=== PATIENT | female | born 1955 | race Two or more races ===

== ENCOUNTER 2024-06-21 14:41 | Emergency (ER) | payer MEDICARE, SELFPAY ==
[2024-06-21] VITALS (11 sets, daily range): BP systolic 120–160; BP diastolic 46–68; PULSE 74–95; RESP 16–99; TEMP 36.7–38.6; O2SAT 95–100; BMI 32.0
--- NOTE | 2024-06-21 14:58 | XR_ITS ---
Examination: CT brain head without contrast. 2-D sagittal coronal reconstructions Date and time of exam:June 21, 2024 1512 hrs. Comparison: January 04, 2024 Indications: Onset severe head pain today CTDI: vol (mGy):51.3 DLP: (mGycm):951 Technique: Multiple CT axial sections of the brain have been obtained, 5 mm slice thickness. Contrast has not been administered. 2-D sagittal, coronal reconstructions have been obtained Low dose protocols were performed. One or more of the following dose reduction techniques were used; automated exposure control, adjustment of the mA and/or KV according to patient size, use of iterative reconstruction technique. Findings: No significant ventricular enlargement. Intra-axial or extra-axial hemorrhage density is not seen. No mass effect or midline shift Basal cisterns are not remarkable. Fourth ventricle is midline. Cranial vault intact. Impression: Negative for acute hemorrhage, mass effect or midline shift Advise clinical correlation and follow-up accordingly
--- NOTE | 2024-06-21 14:58 | XR_ITS ---
Examination: PA lateral chest 2 views Technique: Upright PA lateral chest 2 views Exam date and time: June 21, 2024 1523 hrs. Indications: Coughing today Findings: Normal heart size Opacity left base consistent with pneumonia Right internal jugular Port-A-Cath tip satisfactory position Moderate osteopenia Impression: Left base pneumonia
--- NOTE | 2024-06-21 14:58 | PD.EDRME ---
Rapid Medical Screening Exam RME Arrival date/time: 06/21/24 14:41 69-year-old female cancer patient presents emergency department complaints of headache, generalized bodyaches nausea vomiting Chief Complaint: General Adult/Misc Complain
[2024-06-21 15:51] LABS: Collection Type, Urine Clean Catch
[2024-06-21 16:15] LABS: Lactate (Lactic Acid) 1.1 mMol/L (0.4-2.0)
[2024-06-21 16:19] LABS: Amorphous Crystals,Urine Present (Absent); Bilirubin,Urine Negative (Negative); Blood,Urine Negative (Negative); Clarity,Urine Clear (Clear/Hazy); Color,Urine Lt-Yellow (Lt Yel-Yel); Glucose, Urine Negative (Negative); Ketones,Urine Negative (Negative); Leukocyte Esterase,Urine Negative (Negative); Nitrite,Urine Negative (Negative); Protein,Urine Trace (Neg - Trace); RBC,Urine 1 /hpf (0-3); Specific Gravity,Urine 1.017 (1.001-1.035); Squamous Epithelial Cell,Urine 1 /hpf (0-5); Urobilinogen,Urine Negative mg/dL (0.0-1.0); WBC,Urine 3 /hpf (0-5)
[2024-06-21 16:20] LABS: Basophils % (Auto) 0 % (0-2.5); Eosinophils % (Auto) 1 % (0-10); Immature Granulocytes % (Auto) 0 % (0-0); Lymphocytes # (Auto) 0.6 Thou/mm3 (1.0-4.8); Lymphocytes % (Auto) 42 % (10-50); Mean Corpuscular HGB Conc 34.8 g/dl (31.0-37.0); Mean Corpuscular Hemoglobin 29.6 pg (25.0-35.0); Mean Corpuscular Volume 85 fL (80-100); Monocytes # (Auto) 0.4 Thou/mm3 (0.0-0.8); Monocytes % (Auto) 29 % (0-12); Neutrophils # (Auto) 0.4 Thou/mm3 (1.8-7.7); Neutrophils % (Auto) 27 % (37-80); Nucleated Red Blood Cell % 0 /100 WBC (0); Platelet Count 149 Thou/mm3 (140-440); RDW Standard Deviation 43.2 fL (36.4-46.3)
[2024-06-21 16:45] LABS: Alanine Aminotransferase 12 U/L (10-49); Albumin, Serum 4.3 gm/dL (3.4-4.8); Albumin/Globulin Ratio 1.3 (1.2-2.2); Alkaline Phosphatase 74 U/L (46-116); Anion Gap 8 (7-16); Aspartate Amino Transferase 17 U/L (0-34); BUN/Creatinine Ratio 30 Ratio (12-20); Bilirubin,Total 0.6 mg/dL (0.3-1.2); Blood Urea Nitrogen 30 mg/dL (9-23); Calcium 9.5 mg/dL (8.3-10.6); Calcium (Corrected) 9.5 mg/dL (8.5-10.1); Carbon Dioxide 26.3 mMol/L (20.0-31.0); Chloride 100 mMol/L (98-107); Estimated Creatinine Clearance 50.4 mL/min (>60); Globulin 3.2 gm/dL (2.3-3.5); Glucose 137 mg/dL (74-106); Osmolality,Calculated 276 (275-295); Procalcitonin 0.16 ng/ml (0.0-0.49); Sodium 134 mMol/L (136-145); Total Protein 7.5 gm/dL (5.7-8.2); eGFR > 60 See Note
[2024-06-21 16:46] LABS: Potassium 2.6 mMol/L (3.4-5.1)
--- NOTE | 2024-06-21 16:48 | EKG_ITS ---
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
[2024-06-21 17:14] LABS: Magnesium 1.4 mg/dL (1.6-2.6); Troponin I < 0.020 ng/mL (0.0-0.045)
[2024-06-21 17:19] LABS: White Blood Count 1.5 Thou/mm3 (3.6-11.0)
[2024-06-21 17:35] LABS: Path Review Blood Smear Sent to Pathologist
--- NOTE | 2024-06-21 20:04 | EDNOTE_ITS ---
ED General RME/HPI General Chief complaint: General Adult/Misc Complain Stated complaint: chills, N,V, cancer pt Time Seen by Provider: 06/21/24 18:34 Arrival date/time: 06/21/24 14:41 CC: Cough, shakes HPI cough for 4 days shakes in the last 12 hours. Patient has a history of cervical and breast cancer is currently on chemotherapy every 2 weeks for cervical cancer in the [place]. Patient denies chest pain shortness of breath but is mostly complaining of the headache and the shakes. RME / HPI RME / HPI narrative: 06/21/24 14:41 69-year-old female cancer patient presents emergency department complaints of headache, generalized bodyaches nausea vomiting Related Data Home Medications ?Medication ?Instructions ?Recorded ?Confirmed amlodipine 5 mg tablet 10 mg PO QDAY 07/17/21 03/23/24 hydrochlorothiazide 25 mg tablet 25 mg PO QDAY 07/17/21 03/23/24 Previous Rx's ?Medication ?Instructions ?Recorded oxycodone-acetaminophen 5 mg-325 1 tab PO Q8H PRN pain #21 tabs 03/26/24 mg tablet levofloxacin 750 mg tablet 750 mg PO Q24H 7 days #7 tabs 06/21/24 potassium chloride 20 mEq/15 mL 20 meq (15 mL) PO QDAY #5 mL 06/21/24 oral liquid Allergies Allergy/AdvReac Type Severity Reaction Status Date / Time No Known Allergies Allergy Verified 04/23/24 14:51 Review of Systems Review of Systems Narrative Review of Systems: GEN: No fever, + chills, no weight loss EYES: No discharge, no visual changes, no pain HEENT: No ear pain, no congestion, no sore throat PULM: No shortness of breath, no cough, no congestion CV: No chest pain, no dyspnea on exertion, no palpitations GI: No nausea, no vomiting, no diarrhea, no pain, no constipation : No frequency, no urgency, no dysuria MUSC/SKEL: No joint pain, no back pain SKIN: No rash PSYCH: No hallucinations, no depression HEME/LYMPH: No easy bleeding or bruising tendencies NEURO: No weakness, + headache Past Medical History Past Medical History NEUROLOGIC: Negative Neurological Disorders or Seizures CARDIAC: Positive Hypercholesterolemia, Edema and Hypertension; Negative Cardiac Disorders, Congestive Heart Failure, Cellulitis or Varicose Veins RESPIRATORY: Negative Chronic Obstructive Pulmonary Disease (COPD), Asthma, Tuberculosis, Pulmonary Embolism or Sleep Apnea GASTROINTESTINAL: Positive Gastrointestinal Disorders, Gastroesophageal Reflux Disease and Obesity; Negative Hepatitis GENITOURINARY: Positive Renal Disease; Negative Genitourinary Disorders REPRODUCTIVE: Positive Breast Cancer (left) and Previous Pregnancies (x5) MUSCULOSKELETAL: Positive Musculoskeletal Disorders and Arthritis ENT: Positive Cataracts ENDOCRINE: Negative Endocrine Disorders, Diabetes Mellitus Type 1, Diabetes Mellitus Type 2 or Hypothyroidism HEMATOLOGIC: Negative Blood Disorders, Anemia or Sickle Cell Disease OTHER HISTORY: Positive Cancer and Breast Cancer (left); Negative Hospitalization, Autoimmune Disease, Shingles, Falls, Blood Transfusions, Anesthesia Reactions, Chemotherapy, Radiation Therapy, MRSA, Chicken Pox, Measles or Mumps Family History FAMILY HISTORY: Positive Family Respiratory Disorders, Family Cardiac Disorders, Family Gastrointestinal Problems, Family Cancer and Family Surgery; Negative Family Psychiatric Problems or Family Anesthesia Reaction Surgical History SURGICAL: Positive Abdominal Surgery (pancreatic tumor removed), Tubal Ligation and Section (x4); Negative Pacemaker Social History SMOKING STATUS: Never smoker SECOND HAND EXPOSURE: No ED Exam Narrative Physical exam: [General: Pale obese appears not in any acute distress Head normocephalic HEENT: Within acceptable limits Neck is supple nontender Chest equal chest rise nontender to palpation Respiratory: Clear to auscultation no wheezes crackles or rubs CV: Rate rhythm is regular no murmurs rubs or clicks Abdomen is distended secondary to body habitus soft nontender no masses positive bowel sounds all 4 quadrants GI: Good rectal tone old hemorrhoids, no fissures, stool in the vault guaiac is negative. Back: No CVA tenderness no spinous process tenderness from cervical spine thoracic and lumbar spine Skin: Intact no petechiae rash induration ulceration or crepitus Extremities: Moving all extremity against resistance cap refill less than 2 seconds neurosensory intact. No lower extremity edema. Neuro: Awake alert oriented x2, person and place, Glascow coma 15 no focal deficits] Course Course Course Narrative: Spoke with the son on the phone, who reiterates the patient is on cisplatin for both cervical and breast cancer every 2 weeks at [facility] next dose is in 1 week. Patient gets chemo every 2 weeks. Patient has maintain oxygen saturations greater than 93-94% without tachypnea or tachycardia throughout her visit to the emergency room. At this time comfortable discharging patient home on Levaquin. Family need to follow-up with oncology regarding consideration for postponement. Family is advised that if there is a worsening of symptoms return the emergency room for reevaluation. Quality Measures none Orders Category Date Time Status Bedside COVID-19 Antigen Test NOW Care 06/21/24 14:58 Completed Bedside Influenza A&B Antigen Test NOW Care 06/21/24 14:58 Completed Director Underwriter Sales STAT Care 06/21/24 20:03 Completed Continuous Pulse Oximetry STAT Care 06/21/24 20:03 Completed EKG (ED ONLY) *Do not use* NOW Care 06/21/24 16:48 Completed Insert IV NOW Care 06/21/24 20:03 Completed NPO STAT Care 06/21/24 20:03 Completed Saline [Insert IV] NOW Care 06/21/24 19:52 Completed Strict Intake and Output Routine Care 06/21/24 20:[address] head/brain wo con Stat Exams 06/21/24 14:58 Completed EKG (ED Only) Stat Exams 06/21/24 16:48 Draft XR chest 2V Stat Exams 06/21/24 14:58 Completed B-Type Natriuretic Peptide Stat Lab 06/21/24 16:08 Completed Blood Culture (Lab) Stat Lab 06/21/24 16:03 Results CBC Stat Lab 06/21/24 16:08 Completed Comprehensive Metabolic Panel Stat Lab 06/21/24 16:08 Completed LDH (Lactate Dehydrogenase) Stat Lab 06/21/24 16:08 Completed Lactate (Lactic Acid) Stat Lab 06/21/24 16:08 Completed Lipase Stat Lab 06/21/24 16:08 Completed Mag [Magnesium] Stat Lab 06/21/24 16:08 Completed Partial Thromboplastin Time Stat Lab 06/21/24 16:08 Completed Path Review Blood Smear Stat Lab 06/21/24 16:08 Completed Phosphorous Stat Lab 06/21/24 16:08 Completed Potassium Stat Lab 06/21/24 22:19 Completed Procalcitonin Stat Lab 06/21/24 16:08 Completed Prothrombin Time with INR Stat Lab 06/21/24 16:08 Completed Troponin I Stat Lab 06/21/24 16:08 Completed Type and Screen Stat Lab 06/21/24 19:30 Completed Urinalysis Stat Lab 06/21/24 15:32 Completed Urine Culture Stat Lab 06/21/24 15:32 Completed Acetaminophen Tab [Tylenol Tab] Med 06/21/24 20:12 Discontinued 650 mg PO X1 ONE KCL 10% Liq UDC 15 ML Med 06/21/24 20:11 Discontinued 40 meq GT X1 ONE KCL 10% Liq UDC 15 ML Med 06/21/24 20:11 Discontinued 40 meq GT X1 ONE POTASSIUM CHL 10 mEq IVPB [Kcl Ivpb] Med 06/21/24 19:53 Discontinued 10 meq in 100 ml IV Q1H POTASSIUM CHL 20 mEq IVPB [Kcl Ivpb] Med 06/21/24 18:36 Discontinued 20 meq in 100 ml IV Q2H cefTRIAXone/D5w 1gm IV premix [Rocephin/D5w 1gm IV Med 06/22/24 21:00 Discontinued premix] 50 ml IV QDAY@2100 cefTRIAXone/D5w 1gm IV premix [Rocephin/D5w 1gm IV Med 06/21/24 20:00 Discontinued premix] 50 ml IV X1 Oxygen Delivery NOW RT 06/21/24 20:03 Completed Vital Signs Vital signs: Vital Signs Temperature 100.9 F H 06/21/24 14:52 Pulse Rate 95 06/21/24 14:52 Respiratory Rate 19 06/21/24 14:52 Blood Pressure 134/68 H 06/21/24 14:52 Pulse Oximetry (%) 95 06/21/24 14:52 Oxygen Delivery Method Room Air 06/21/24 14:52 [facility] Patient data External records reviewed:: [facility] previous records Clinical information provided by:: patient Social determinants that could affect healthcare access:: none Patient has the following chronic illnesses:: Cervical breast cancer on chemotherapy How is presenting disease/condition affected by chronic disease/condition?: u neffected by Evaluation data The following diagnostics were reviewed and interpreted by me:: lab results and radiology exam(s) Lab and/or radiology exams considered but not ordered:: EKG performed at 180 shows a ventricular rate of 70 VA interval 157 QRS of 116 QTc 385 this is sinus rhythm when compared to the old EKG of December 2021 there are no significant changes. CBC shows a leukopenia with a WBCs of 1.5 H&H of 8.0 and 23.0 when compared to old blood draws this is a 5 g drop over the last blood draw. Platelets at 149 CMP shows a sodium 134 potassium 2.4 chloride of 100 CO2 of 26.3 BUN of 30 creatinine 1.0 with a glucose of 137 Urine is negative for urinary tract infection Interpretation Summary: This patient has intermediate anemia, probably secondary to chemotherapy guaiac is negative. X-ray shows a pneumonia in the left base this is consistent with the patient's clinical presentation of cough, potassium is also noted to be low. Medications Medications considered but not ordered:: None Medication administrations:: Medication Administration History Discontinued Medications Acetaminophen (Acetaminophen 325 Mg Tablet) 650 mg PO X1 ONE Stop: 06/21/24 20:13 Last Admin: 06/21/24 20:22 Dose: 650 mg Documented By: PA Potassium Chloride (Kcl Ivpb) 20 meq in 100 mls @ 50 mls/hr IV Q2H [facility] Stop: 06/21/24 22:35 Last Admin: 06/21/24 20:07 Dose: Not Given Documented By: PA Non-Admin Reason: Discontinued Ceftriaxone Sodium/Dextrose (Rocephin/D5w 1gm Iv Premix) 50 mls @ 100 mls/hr IV QDAY@2100 [facility] Stop: 06/28/24 19:52 Potassium Chloride (Kcl Ivpb) 10 meq in 100 mls @ 100 mls/hr IV Q1H [facility] Stop: 06/21/24 23:52 Last Admin: 06/21/24 20:19 Dose: Not Given Documented By: PA Non-Admin Reason: Discontinued Ceftriaxone Sodium/Dextrose (Rocephin/D5w 1gm Iv Premix) 50 mls @ 100 mls/hr IV X1 ONE Stop: 06/21/24 20:29 Last Infusion: 06/21/24 21:41 Dose: Infused Documented By: Admin: 06/21/24 20:08 Dose: 100 mls/hr Documented By: PA Potassium Chloride (Potassium Chloride 10% 20 Meq/15 Ml Udc) 40 meq GT X1 ONE Stop: 06/21/24 20:12 Last Admin: 06/21/24 20:22 Dose: 40 meq Documented By: PA Potassium Chloride (Potassium Chloride 10% 20 Meq/15 Ml Udc) 40 meq GT X1 ONE Stop: 06/21/24 20:12 Last Admin: 06/21/24 21:02 Dose: 40 meq Documented By: PA None Consultations Consultation(s) initiated? (list below): No Diagnosis Differential Diagnosis ED Complaint MDM: Hypokalemia anemia Most likely diagnosis given after review of the tests above:: Hypokalemia anemia Admission Indicated Admission indicated?: not indicated Explain why admission is indicated or not indicated:: Stable for outpatient follow-up Admission Request Was there a request for admission?: No Disposition Plan Disposition Plan: Discharge Discharge Attestation Discharge Attestation: The patient and all family members were given an opportunity to ask questions and understood the discharge instructions. Discharge instructions specifically effects, indications for sooner follow up or return to the emergency department, and the expected course of current diagnosis. Patient condition: Stable Medical Decision Making Differential Diagnosis Differential Diagnosis: Hypokalemia anemia Lab Data 06/21/24 16:08 06/21/24 22:19 Labs: Lab Results 06/21/24 06/21/24 06/21/24 Range/Units 15:32 16:08 19:30 WBC 1.5 L (3.6-11.0) Thou/mm3 RBC 2.70 L (4.00-5.20) Miln/mm3 Hgb 8.0 L (12.0-16.0) g/dL Hct 23.0 L (36.0-46.0) % MCV 85 (80-100) fL MCH 29.6 (25.0-35.0) pg MCHC 34.8 (31.0-37.0) g/dl RDW Std Deviation 43.2 (36.4-46.3) fL Plt Count 149 (140-440) Thou/mm3 Neut % (Auto) 27 L (37-80) % Lymph % (Auto) 42 (10-50) % [place] % (Auto) 29 H (0-12) % Eos % (Auto) 1 (0-10) % Baso % (Auto) 0 (0-2.5) % Neut # (Auto) 0.4 L (1.8-7.7) Thou/mm3 Lymph # (Auto) 0.6 L (1.0-4.8) Thou/mm3 [place] # (Auto) 0.4 (0.0-0.8) Thou/mm3 Eos # (Auto) 0.0 (0.0-0.5) Thou/mm3 Baso # (Auto) 0.0 (0.0-0.2) Thou/mm3 Immature Gran # (Auto) 0.00 (0.00-0.00) Thou/mm3 Absolute Nucleated RBC 0.00 (0.00-0.00) Thou/mm3 Immature Gran % 0 (0-0) % Nucleated RBC % 0 (0) /100 WBC Smear Path Review Sent to Pathologist PT 14.0 H (9.0-12.2) Seconds INR 1.3 (0.9-1.3) APTT 34.8 (22.0-36.0) Seconds Sodium 134 L (136-145) mMol/L Potassium 2.6 L* (3.4-5.1) mMol/L Chloride 100 (98-107) mMol/L Carbon Dioxide 26.3 (20.0-31.0) mMol/L Anion Gap 8 (7-16) BUN 30 H (9-23) mg/dL Creatinine 1.0 (0.6-1.3) mg/dL Estim Creat Clear Calc 50.4 L (>60) mL/min eGFR > 60 (60 - ) See Note BUN/Creatinine Ratio 30 H (12-20) Ratio Glucose 137 H (74-106) mg/dL Calculated Osmolality 276 (275-295) Lactic Acid 1.1 (0.4-2.0) mMol/L Calcium 9.5 (8.3-10.6) mg/dL Corrected Calcium 9.5 (8.5-10.1) mg/dL Phosphorus 2.0 L (2.4-5.1) mg/dL Magnesium 1.4 L (1.6-2.6) mg/dL Total Bilirubin 0.6 (0.3-1.2) mg/dL AST 17 (0-34) U/L ALT 12 (10-49) U/L Alkaline Phosphatase 74 (46-116) U/L Lactate Dehydrogenase 170 (120-246) U/L Troponin I < 0.020 (0.0-0.045) ng/mL B-Natriuretic Peptide 24 (0-100) pg/mL Total Protein 7.5 (5.7-8.2) gm/dL Albumin 4.3 (3.4-4.8) gm/dL Globulin 3.2 (2.3-3.5) gm/dL Albumin/Globulin Ratio 1.3 (1.2-2.2) Lipase 36 (12-53) U/L Procalcitonin 0.16 (0.0-0.49) ng/ml Ur Collection Type Clean Catch Urine Color Lt-Yellow (Lt Yel-Yel) Urine Clarity Clear (Clear/Hazy) Urine pH 6.0 (5.0-7.0) Ur Specific [place] 1.017 (1.001-1.035) Urine Protein Trace (Neg - Trace) Urine Glucose (UA) Negative (Negative) Urine Ketones Negative (Negative) Urine Blood Negative (Negative) Urine Nitrite Negative (Negative) Urine Bilirubin Negative (Negative) Urine Urobilinogen (Auto) Negative (0.0-1.0) mg/dL Ur Leukocyte Esterase Negative (Negative) Urine RBC 1 (0-3) /hpf Urine WBC 3 (0-5) /hpf Ur Squamous Epith Cells 1 (0-5) /hpf Amorphous Crystals Present A (Absent) Urine Bacteria None (None) Blood Type O Positive Antibody Screen NEGATIVE Blood Bank Wristband ID Yes 06/21/24 Range/Units 22:19 WBC (3.6-11.0) Thou/mm3 RBC (4.00-5.20) Miln/mm3 Hgb (12.0-16.0) g/dL Hct (36.0-46.0) % MCV (80-100) fL MCH (25.0-35.0) pg MCHC (31.0-37.0) g/dl RDW Std Deviation (36.4-46.3) fL Plt Count (140-440) Thou/mm3 Neut % (Auto) (37-80) % Lymph % (Auto) (10-50) % [place] % (Auto) (0-12) % Eos % (Auto) (0-10) % Baso % (Auto) (0-2.5) % Neut # (Auto) (1.8-7.7) Thou/mm3 Lymph # (Auto) (1.0-4.8) Thou/mm3 [place] # (Auto) (0.0-0.8) Thou/mm3 Eos # (Auto) (0.0-0.5) Thou/mm3 Baso # (Auto) (0.0-0.2) Thou/mm3 Immature Gran # (Auto) (0.00-0.00) Thou/mm3 Absolute Nucleated RBC (0.00-0.00) Thou/mm3 Immature Gran % (0-0) % Nucleated RBC % (0) /100 WBC Smear Path Review PT (9.0-12.2) Seconds INR (0.9-1.3) APTT (22.0-36.0) Seconds Sodium (136-145) mMol/L Potassium 4.3 D (3.4-5.1) mMol/L Chloride (98-107) mMol/L Carbon Dioxide (20.0-31.0) mMol/L Anion Gap (7-16) BUN (9-23) mg/dL Creatinine (0.6-1.3) mg/dL Estim Creat Clear Calc (>60) mL/min eGFR (60 - ) See Note BUN/Creatinine Ratio (12-20) Ratio Glucose (74-106) mg/dL Calculated Osmolality (275-295) Lactic Acid (0.4-2.0) mMol/L Calcium (8.3-10.6) mg/dL Corrected Calcium (8.5-10.1) mg/dL Phosphorus (2.4-5.1) mg/dL Magnesium (1.6-2.6) mg/dL Total Bilirubin (0.3-1.2) mg/dL AST (0-34) U/L ALT (10-49) U/L Alkaline Phosphatase (46-116) U/L Lactate Dehydrogenase (120-246) U/L Troponin I (0.0-0.045) ng/mL B-Natriuretic Peptide (0-100) pg/mL Total Protein (5.7-8.2) gm/dL Albumin (3.4-4.8) gm/dL Globulin (2.3-3.5) gm/dL Albumin/Globulin Ratio (1.2-2.2) Lipase (12-53) U/L Procalcitonin (0.0-0.49) ng/ml Ur Collection Type Urine Color (Lt Yel-Yel) Urine Clarity (Clear/Hazy) Urine pH (5.0-7.0) Ur Specific [place] (1.001-1.035) Urine Protein (Neg - Trace) Urine Glucose (UA) (Negative) Urine Ketones (Negative) Urine Blood (Negative) Urine Nitrite (Negative) Urine Bilirubin (Negative) Urine Urobilinogen (Auto) (0.0-1.0) mg/dL Ur Leukocyte Esterase (Negative) Urine RBC (0-3) /hpf Urine WBC (0-5) /hpf Ur Squamous Epith Cells (0-5) /hpf Amorphous Crystals (Absent) Urine Bacteria (None) Blood Type Antibody Screen Blood Bank Wristband ID Discharge Plan Plan Patient Disposition: HOME (Self Care) Patient condition on transfer: Stable Prescriptions/Referrals Prescriptions/Med Rec: New levofloxacin 750 mg tablet 750 mg PO Q24H 7 Days Qty: 7 0RF potassium chloride 20 mEq/15 mL liquid 20 meq PO QDAY Qty: 5 0RF No Action amlodipine 5 mg tablet 10 mg PO QDAY hydrochlorothiazide 25 mg tablet 25 mg PO QDAY oxycodone-acetaminophen 5-325 mg tablet 1 tab PO Q8H MDD 15MG PRN (Reason: pain) Qty: 21 0RF Referrals: John Dempsey MD [Primary Care Provider] - In 1 week Problem List Clinical Impression: Pneumonia, Hypokalemia Patient/Caregiver Discharge Instructions Other Activity Instructions:: Take the medications as prescribed if is a worsening of symptoms return the emergency room Education Materials: ED Hypokalemia, ED Pneumonia (Adult) Print Language: Mauritian Stand Alone Forms: Gavi Award Info., Work/School Release, Patient Portal Info Letter MD Attestation Attestation The patient was seen by the midlevel practitioner. I, the co-signing physician, was present during the entire ER visit. While I did not physically examine the patient, I was available for consultation as needed.
[2024-06-21] MEDS: cefTRIAXone/D5w 1gm IV premix 50 ML IV (20:08)
[2024-06-21] MEDS: ACETAMINOPHEN 325 MG TABLET 650 MG PO (20:22)
[2024-06-21] MEDS: POTASSIUM CHLORIDE 10% 20 MEQ/15 ML UDC 40 MEQ GT ×2 (20:22→21:02)
[2024-06-21 20:55] LABS: B-Type Natriuretic Peptide 24 pg/mL (0-100)
[2024-06-21 21:04] LABS: INR 1.3 (0.9-1.3); Partial Thromboplastin Time 34.8 Seconds (22.0-36.0)
[2024-06-21 21:09] LABS: LDH (Lactate Dehydrogenase) 170 U/L (120-246); Lipase 36 U/L (12-53)
[2024-06-21 22:56] LABS: Potassium 4.3 mMol/L (3.4-5.1)
== END 2024-06-21 23:30 | disposition home or self-care (01) ==
PROVIDERS: Nurse Practitioner Primary Care; Registered Nurse General Practice; Emergency Provider Emergency Medicine; PCP Internal Medicine
DX: J18.9 Pneumonia, unspecified organism (principal); E87.6 Hypokalemia; R51.9 Headache, unspecified; I45.89 Other specified conduction disorders; E78.00 Pure hypercholesterolemia, unspecified; I10 Essential (primary) hypertension
CPT/HCPCS: 36415; 70450; 71046; 80053; 81001; 83605; 83615; 83690; 83735; 83880; 84100; 84132; 84145; 84484; 85025; 85610; 85730; 86850; 86900; 86901; 87040; 87086; 87400; 87811; 93005; 96365; 96366; 99284; J0696; A9270

== ENCOUNTER → 2024-08-02 | Outpatient (CLI) | payer MEDICARE, SELFPAY ==
--- NOTE | 2024-08-02 11:24 | XR_ITS ---
Examination: PA lateral chest 2 views TECHNIQUE: Upright PA lateral chest 2 views Exam date and time: August 02, 2024 1148 hours INDICATIONS: Dyspnea beginning 2 days ago. FINDINGS: Right internal jugular Port-A-Cath tip SVC satisfactory position Normal heart size No pneumonia or pulmonary edema Moderate thoracic spondylosis IMPRESSION: No pneumonia or pulmonary edema
== END | disposition home or self-care (01) ==
PROVIDERS: PCP Internal Medicine; Referring Provider Internal Medicine; Visit Provider Internal Medicine
DX: R06.00 Dyspnea, unspecified (principal)
CPT/HCPCS: 71046

== ENCOUNTER 2024-09-20 13:57 | Emergency (ER) | payer MEDICARE, SELFPAY ==
[2024-09-20] VITALS (9 sets, daily range): BP systolic 163–194; BP diastolic 88–99; PULSE 85–100; RESP 14–33; TEMP 36.8–37.3; O2SAT 95–98; BMI 29.2
--- NOTE | 2024-09-20 14:29 | XR_ITS ---
Examination: CT chest, without intravenous contrast. CT abdomen, without intravenous contrast. CT pelvis, without intravenous contrast. 2-D sagittal and coronal reconstructions. 3-D reconstructions. Date and time of exam:September 20, 2024 1507 hours INDICATIONS: Constipation no bowel movement lower abdominal pain post hysterectomy 4 days ago CTDI vol (mgy) 8.06 DLP (MGycm)542 Technique: Multiple CT images, 3.0 mm slice thickness, obtained chest, abdomen, pelvis, with the high-resolution 64 slice scanner.. Sagittal and coronal 2-D reconstructions are obtained. 3-D reconstructions Low dose protocols were performed. One or more of the following dose reduction techniques were used; automated exposure control, adjustment of the mA and/or KV according to patient size, use of iterative reconstruction technique. Findings: Thoracic aortic calcification no aneurysmal dilatation Pulmonary artery segments are not enlarged Fluid distended esophagus Atelectasis in the lower lung zones No lobar pneumonia Pneumoperitoneum Distended gallbladder with gallstones No focal liver lesions Spleen is not enlarged No pancreatic mass No hydronephrosis Multiple fluid distended small bowel loops with incarcerated small bowel in a left lower abdominal wall hernia defect measuring 20 mm Mild free fluid in the pelvis Absent uterus Contracted urinary bladder IMPRESSION: High-grade small bowel obstruction secondary to incarcerated small bowel in the left lower abdominal wall hernia defect
--- NOTE | 2024-09-20 14:30 | EDRME_ITS ---
Rapid Medical Screening Exam RME Arrival date/time: 09/20/24 13:57 69-year-old female presents to the emergency department today patient recently had laparoscopic hysterectomy as well as left breast removal for cancer at [facility] Chief Complaint: Abdominal Pain Vital signs: Vital Signs Temperature 99.1 F 09/20/24 14:23 Pulse Rate 100 09/20/24 14:23 Respiratory Rate 20 09/20/24 14:23 Blood Pressure 172/95 H 09/20/24 14:23 Pulse Oximetry (%) 97 09/20/24 14:23 Oxygen Delivery Method Room Air 09/20/24 14:23
[2024-09-20 15:14] LABS: Basophils % (Auto) 0 % (0-2.5); Eosinophils % (Auto) 0 % (0-10); Hematocrit 29.3 % (36.0-46.0); Immature Granulocytes % (Auto) 0 % (0-0); Lymphocytes # (Auto) 0.8 Thou/mm3 (1.0-4.8); Lymphocytes % (Auto) 25 % (10-50); Mean Corpuscular HGB Conc 34.1 g/dl (31.0-37.0); Mean Corpuscular Hemoglobin 33.1 pg (25.0-35.0); Mean Corpuscular Volume 97 fL (80-100); Monocytes # (Auto) 0.5 Thou/mm3 (0.0-0.8); Monocytes % (Auto) 16 % (0-12); Neutrophils # (Auto) 1.9 Thou/mm3 (1.8-7.7); Neutrophils % (Auto) 58 % (37-80); Nucleated Red Blood Cell % 0 /100 WBC (0); Platelet Count 211 Thou/mm3 (140-440); RDW Standard Deviation 56.4 fL (36.4-46.3); Red Blood Count 3.02 Miln/mm3 (4.00-5.20); White Blood Count 3.3 Thou/mm3 (3.6-11.0)
[2024-09-20 15:26] LABS: Collection Type, Urine Clean Catch
[2024-09-20 15:48] LABS: Alanine Aminotransferase 9 U/L (10-49); Albumin, Serum 4.7 gm/dL (3.4-4.8); Albumin/Globulin Ratio 1.5 (1.2-2.2); Alkaline Phosphatase 89 U/L (46-116); Anion Gap 12 (7-16); Aspartate Amino Transferase 16 U/L (0-34); BUN/Creatinine Ratio 26 Ratio (12-20); Bilirubin,Total 0.8 mg/dL (0.3-1.2); Blood Urea Nitrogen 36 mg/dL (9-23); Calcium 10.2 mg/dL (8.3-10.6); Calcium (Corrected) 10.2 mg/dL (8.5-10.1); Carbon Dioxide 26.8 mMol/L (20.0-31.0); Chloride 98 mMol/L (98-107); Creatinine (Component) 1.4 mg/dL (0.6-1.3); Estimated Creatinine Clearance 34.4 mL/min (>60); Globulin 3.1 gm/dL (2.3-3.5); Glucose 184 mg/dL (74-106); Lipase 52 U/L (12-53); Osmolality,Calculated 287 (275-295); Potassium 4.3 mMol/L (3.4-5.1); Sodium 137 mMol/L (136-145); Total Protein 7.8 gm/dL (5.7-8.2); eGFR 40 See Note
[2024-09-20 16:16] LABS: Bilirubin,Urine 1+ (Negative); Blood,Urine Negative (Negative); Clarity,Urine Turbid (Clear/Hazy); Color,Urine Yellow (Lt Yel-Yel); Culture Indicated,Urine Not Indicated; Glucose, Urine Negative (Negative); Hyaline Casts,Urine 4 /hpf (0-1); Ketones,Urine 1+ (Negative); Leukocyte Esterase,Urine Positive (Negative); Nitrite,Urine Negative (Negative); Protein,Urine 1+ (Neg - Trace); RBC,Urine 13 /hpf (0-3); Specific Gravity,Urine 1.031 (1.001-1.035); Squamous Epithelial Cell,Urine 4 /hpf (0-5); WBC,Urine 4 /hpf (0-5)
--- NOTE | 2024-09-20 18:44 | EKG_ITS ---
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
[2024-09-20] MEDS: ONDANSETRON INJ 2 MG/ML INJ 2 ML 4 MG IV (19:39)
[2024-09-20] MEDS: SODIUM CHLORIDE 0.9% 1000 ML 1,000 ML 999 ML IV (19:40)
[2024-09-20] MEDS: HYDROmorphone INJ 2 MG/ML VIAL 1 MG IVP (19:40)
--- NOTE | 2024-09-20 20:26 | EDNOTE_ITS ---
ED Abdominal Pain RME/HPI General Chief Complaint: Abdominal Pain Stated complaint: ABD PAIN/NO BM S/P SURGERY 09/18 FOR LAP LAURA Time seen by provider: 09/20/24 18:30 Arrival date/time: 09/20/24 13:57 Source: patient and family Mode of arrival: ambulatory Limitations: no limitations RME / HPI RME / HPI narrative: 09/20/24 13:57 69-year-old female presents to the emergency department today patient recently had laparoscopic hysterectomy as well as left breast removal for cancer at [facility] Dr. Camp?s Main ED Evaluation: 69-year-old female brought to the emergency department by ambulance due to significantly worsening abdominal pain at the surgical incision site. The patient reports she recently had laparoscopic hysterectomy at [facility] as part of her treatment for cervical cancer this past Friday. Since discharge, she has experienced worsening pain, prompting today's ED visit for concerns for post surgical complications. Related Data Home Medications ?Medication ?Instructions ?Recorded ?Confirmed amlodipine 5 mg tablet 10 mg PO QDAY 07/17/2103/23 hydrochlorothiazide 25 mg tablet 25 mg PO QDAY 1 03/23/24 Previous Rx's ?Medication ?Instructions ?Recorded oxycodone-acetaminophen 5 mg-325 1 tab PO Q8H PRN pain #21 tabs 03/26/24 mg tablet potassium chloride 20 mEq/15 mL 20 meq (15 mL) PO QDAY #5 mL 06/21/24 oral liquid Allergies Allergy/AdvReac Type Severity Reaction Status Date / Time No Known Allergies Allergy Verified 09/20/24 14:01 Review of Systems Review of Systems Systems Reviewed: All systems reviewed, normal except as documented Past Medical History Past Medical History NEUROLOGIC: Negative Neurological Disorders or Seizures CARDIAC: Positive Hypercholesterolemia, Edema and Hypertension; Negative Cardiac Disorders, Congestive Heart Failure, Cellulitis or Varicose Veins RESPIRATORY: Negative Chronic Obstructive Pulmonary Disease (COPD), Asthma, Tuberculosis, Pulmonary Embolism or Sleep Apnea GASTROINTESTINAL: Positive Gastrointestinal Disorders, Gastroesophageal Reflux Disease and Obesity; Negative Hepatitis GENITOURINARY: Positive Renal Disease; Negative Genitourinary Disorders REPRODUCTIVE: Positive Breast Cancer (left) and Previous Pregnancies (x5) MUSCULOSKELETAL: Positive Musculoskeletal Disorders and Arthritis ENT: Positive Cataracts ENDOCRINE: Negative Endocrine Disorders, Diabetes Mellitus Type 1, Diabetes Mellitus Type 2 or Hypothyroidism HEMATOLOGIC: Negative Blood Disorders, Anemia or Sickle Cell Disease OTHER HISTORY: Positive Cancer and Breast Cancer (left); Negative Hospitalization, Autoimmune Disease, Shingles, Falls, Blood Transfusions, Anesthesia Reactions, Chemotherapy, Radiation Therapy, MRSA, Chicken Pox, Measles or Mumps Family History FAMILY HISTORY: Positive Family Respiratory Disorders, Family Cardiac Disorders, Family Gastrointestinal Problems, Family Cancer and Family Surgery; Negative Family Psychiatric Problems or Family Anesthesia Reaction Surgical History SURGICAL: Positive Abdominal Surgery (pancreatic tumor removed), Tubal Ligation and Section (x4); Negative Pacemaker Social History SMOKING STATUS: Never smoker SECOND HAND EXPOSURE: No ED Exam Narrative Physical exam: GENERAL APPEARANCE: alert and oriented x 4, well-developed, well-nourished, no acute distress VITALS: All vitals were reviewed and the pulse ox is 97% on room air, which is normal according to my interpretation. HEENT: Normocephalic, atraumatic; pupils equal, round, reactive to light; EOMI; mucous membranes pink, moist; oropharynx clear NECK: Supple LUNGS: CTABL; no wheezes, no rales, no rhonchi HEART: Regular rate, regular rhythm; normal S1, S2; no murmurs ABDOMEN: There is a hard, exquisitely tender, palpable mass approximately 12 cm in diameter located in the suprapubic and left lower quadrants of the anterior abdomen, with a large overlying fat pad. Multiple fresh, well-healing wounds are present in the suprapubic region without surrounding erythema, drainage, or active bleeding. BACK: no CVA tenderness EXTREMITIES: atraumatic; no edema NEUROLOGIC: awake; alert and oriented x4; cranial nerves II-XII grossly intact; no focal sensory or motor deficits PSYCHIATRIC: appropriate mood and affect SKIN: warm, dry, normal color; no rashes General Limitations: Present no limitations Course Quality Measures none Orders Category Date Time Status EKG (ED ONLY) *Do not use* NOW Care 09/20/24 18:[address] chest abdomen pelvis wo Stat Exams 09/20/24 14:29 Completed EKG (ED Only) Stat Exams 09/20/24 18:44 Draft CBC Stat Lab 09/20/24 14:57 Completed Comprehensive Metabolic Panel Stat Lab 09/20/24 14:57 Completed Lipase Stat Lab 09/20/24 14:57 Completed UA, C/S IF [Urinalysis, C/S if Indicated] Stat Lab 09/20/24 15:19 Completed HYDROmorphone INJ [Dilaudid Inj] Med 09/20/24 18:41 Discontinued 1 mg IVP X1 ONE HYDROmorphone INJ [Dilaudid Inj] Med 09/21/24 00:15 Discontinued 1 mg IVP X1 ONE Ondansetron Inj [Zofran Inj] Med 09/20/24 18:41 Discontinued 4 mg IV X1 ONE Sodium Chloride 0.9% 1000 ml [Ns] 1,000 ml Med 09/20/24 18:41 Discontinued IV 999 mls/hr Vital Signs Vital signs: Vital Signs Temperature 99.1 F 09/20/24 14:23 Pulse Rate 100 09/20/24 14:23 Respiratory Rate 20 09/20/24 14:23 Blood Pressure 172/95 H 09/20/24 14:23 Pulse Oximetry (%) 97 09/20/24 14:23 Oxygen Delivery Method Room Air 09/20/24 14:23 Abdominal Pain MDM MDM Narrative MDM Narrative:: 20:11, the case was discussed with Dr. Monique, Gynecologic Oncology from [facility]. Dr. Monique stated that he will consult with his team to expedite coordination for the patient's direct admission. Level of care needed: [facility] 0100: Charge nurse, Celio, alerted me that the patient has a bed avalaible for her at [facility] and is now pending transfer. The differential diagnoses include small bowel obstruction (SBO), post-surgical abscess, post-surgical hemorrhage, and surgical wound dehiscence. Scribe Attestation: Sam Shoemaker am scribing for and in the presence of Dr. Camp. Provider Notation: Although this document has been carefully reviewed, there may still be some phonetic and other typographical errors. These errors are purely grammatical due to imperfections in the software program and should not be construed in any way to compromise the substance of the patient's medical care during this visit. Patient data External records reviewed:: [facility] previous records Clinical information provided by:: patient and family Social determinants that could affect healthcare access:: none Patient has the following chronic illnesses:: see PMH How is presenting disease/condition affected by chronic disease/condition?: caused by Evaluation data The following diagnostics were reviewed and interpreted by me:: lab results, radiology exam(s) and EKG tracing(s) Lab and/or radiology exams considered but not ordered:: n/a Interpretation Summary: I personally reviewed the radiology data and agree with the radiologist's interpretation. Examination: CT chest, without intravenous contrast. CT abdomen, without intravenous contrast. CT pelvis, without intravenous contrast. Date and time of exam:September 20, 2024 1507 hours INDICATIONS: Constipation no bowel movement lower abdominal pain post hysterectomy 4 days ago Findings: Thoracic aortic calcification no aneurysmal dilatation Pulmonary artery segments are not enlarged Fluid distended esophagus Atelectasis in the lower lung zones No lobar pneumonia Pneumoperitoneum Distended gallbladder with gallstones No focal liver lesions Spleen is not enlarged No pancreatic mass No hydronephrosis Multiple fluid distended small bowel loops with incarcerated small bowel in a left lower abdominal wall hernia defect measuring 20 mm Mild free fluid in the pelvis Absent uterus Contracted urinary bladder IMPRESSION: High-grade small bowel obstruction secondary to incarcerated small bowel in the left lower abdominal wall hernia defect Medications / Prescriptions Medications or Prescriptions considered but not ordered:: n/a Medication administrations:: Medication Administration History Discontinued Medications Hydromorphone HCl (Hydromorphone Inj 2 Mg/Ml Vial) 1 mg IVP X1 ONE Stop: 09/20/24 18:42 Last Admin: 09/20/24 19:40 Dose: 1 mg Documented By: HALLEY Hydromorphone HCl (Hydromorphone Inj 2 Mg/Ml Vial) 1 mg IVP X1 ONE Stop: 09/21/24 00:16 Last Admin: 09/21/24 00:20 Dose: 1 mg Documented By: HALLEY Sodium Chloride (Ns) 1,000 mls @ 999 mls/hr IV .Q1H1M ONE Stop: 09/20/24 19:41 Last Infusion: 09/20/24 21:05 Dose: Infused Documented By: Admin: 09/20/24 19:40 Dose: 999 mls/hr Documented By: HALLEY Ondansetron HCl (Ondansetron Inj 2 Mg/Ml Inj 2 Ml) 4 mg IV X1 ONE; Protocol Stop: 09/20/24 18:42 Last Admin: 09/20/24 19:39 Dose: 4 mg Documented By: HALLEY as above Consultations Consultation(s) initiated? (list below): Yes Consultation #1 (Physician, Specialty, Details): see narrative Diagnosis Differential diagnosis abdominal pain: other (see narrative) Most likely diagnosis given after review of the tests above:: see clinical impression below Admission Indicated Admission indicated?: not indicated Explain why admission is indicated or not indicated:: Higher level of care indicated Admission Request Was there a request for admission?: No Disposition Plan Disposition Plan: Transfer Critical Care Time Critical Care Time Critical Care Time: Yes Total Critical Care Time (min.): 60 Attestation: The high probability of sudden, clinically significant deterioration in the patient?s condition required the highest level of my preparedness to intervene urgently. ? The services I provided to this patient were to treat and/or prevent clinically significant deterioration. Services included the following: chart data review, reviewing nursing notes and/or old charts, documentation time, supervisor home energy consultant collaboration regarding findings and treatment options, medication orders and management, direct patient care, vital sign assessments and ordering, interpreting and reviewing diagnostic studies and lab tests. ? Aggregate critical care time includes only time during which I was engaged in work directly related to the patient?s care, as described above, whether at bedside or elsewhere in the Emergency Department. It did not include time spent performing other reported procedures or the services of residents, students, nurses or physician assistants. Discharge Plan Plan Patient Disposition: [facility] Pt Being Transferred to: Other-Specify in comment Service Needed for Transfer: Gynecology Disposition Comment: Accepted by Dr. Monique, Gynecologic Oncology Patient condition on transfer: Stable Prescriptions/Referrals Prescriptions/Med Rec: No Action amlodipine 5 mg tablet 10 mg PO QDAY hydrochlorothiazide 25 mg tablet 25 mg PO QDAY oxycodone-acetaminophen 5-325 mg tablet 1 tab PO Q8H MDD 15MG PRN (Reason: pain) Qty: 21 0RF potassium chloride 20 mEq/15 mL liquid 20 meq PO QDAY Qty: 5 0RF Referrals: John Dempsey MD [Primary Care Provider] - In 1 week Problem List Clinical Impression: Incarcerated ventral hernia, SBO (small bowel obstruction) Patient/Caregiver Discharge Instructions Print Language: Montenegrin Stand Alone Forms: Gavi Award Info., Patient Portal Info Letter
[2024-09-21] VITALS: BP 154/74; PULSE 92; RESP 35; O2SAT 96
[2024-09-21] MEDS: HYDROmorphone INJ 2 MG/ML VIAL 1 MG IVP (00:20)
[2024-09-21 01:00] VITALS: BP 170/93; PULSE 89; RESP 21; O2SAT 94
--- NOTE | 2024-09-21 01:03 | PC.NURSE ---
THIS PT IS ACCEPTED TO [facility] BY DR. FRANSISCA MAI. THIS PT IS GOING TO RM 2309 AND NUMBER FOR REPORT IS [phone]. BUILDING ADDRESS IS [address] [place] [address]. ZAIN WAS THE FACILITY REP I SPOKE WITH FOR ACCEPTING INFORMATION AND ZAIN REQUEST THAT WE GIVE HER A CALL BACK WITH A ETA AT [phone].
[2024-09-21 01:21] VITALS: BP 170/93; PULSE 87; RESP 17; TEMP 36.4; O2SAT 95
--- NOTE | 2024-09-21 01:41 | PC.NURSE ---
THIS PT IS ACCEPTED FOR TRANSPORT BY [facility] WITH A ETA OF [phone]. TEO WAS THE REP I SPOKE WITH FOR THE ACCEPTING INFORMATION.
[2024-09-21 02:00] VITALS: BP 142/95; PULSE 88; RESP 18; O2SAT 96
[2024-09-21 03:01] VITALS: BP 172/90; PULSE 92; RESP 25; O2SAT 96
[2024-09-21 03:25] VITALS: BP 172/90; PULSE 91; RESP 17; O2SAT 95
--- NOTE | 2024-09-21 03:31 | PC.NURSE ---
REPORT GIVEN TO ALEX COTA AT [facility]. ALL QUESTIONS ASKED AND ANSWERED. PATIENT TRANSFERRED TO [facility] WITH STAFF. PATIENT REMAINS ON ROOM AIR. IV REMAINS TO RIGHT HAND. NO DISTRESS NOTED AT TRANSFER. FAMILY AT BEDSIDE AND AWARE OF WHERE PATIENT IS GOING.
== END 2024-09-21 03:50 | disposition short-term general hospital (02) ==
PROVIDERS: Nurse Practitioner Primary Care; Emergency Provider Emergency Medicine; PCP Internal Medicine
DX: K43.6 Other and unspecified ventral hernia with obstruction, without gangrene (principal); C53.9 Malignant neoplasm of cervix uteri, unspecified; E78.00 Pure hypercholesterolemia, unspecified; I10 Essential (primary) hypertension; Z85.3 Personal history of malignant neoplasm of breast; Z90.710 Acquired absence of both cervix and uterus
CPT/HCPCS: 36415; 71250; 74176; 80053; 81001; 83690; 85025; 93005; 96361; 96374; 96375; 96376; 99284; J2405; J3490; J7030

== ENCOUNTER 2024-11-02 13:01 | Outpatient (RCR) | payer MEDICARE, SELFPAY ==
--- NOTE | 2024-11-02 16:04 | CTCTXPLN_ITS ---
[facility] [address] [place], [place] [address] Physician Clinical Treatment Planning Note Date of Service: 11/02/2024 Name: ALYSSA MOLINA : 1955 The patient has agreed to proceed with Radiation therapy. Tests and supporting medical records were interpreted to assist in defining the tumor location and extent of disease. Further imaging will be necessary to contour and delineate the volume to which the XRT will be provided. A. Treatment Intent: Curative B. Modality: 15 MV C. Requested Technique: 3D D. Treatment Site: Left breast E. Critical structures to be contoured on plan: F. In order to accomplish this plan, I am ordering/Prescribing the followin. Simulations (s) will be performed to accomplish a reproducible treatment position, to determine optimal treatment portals/beam arrangements, to design beam modifying devices and verify treatment portals on patient prior to the commencement of Radiation Therapy. Vac-Kuldip 2. Devices; for immobilization and beam shaping: Left breast 3. CT Guidance for placement of XRT aviles Scan area: 4. Portal images Frequency: 5. Invivo transit dose measurement once per week on all VMAT patients. 6. Special Physics Consult Requested for: 7. Other requests: Special procedures someone getting chemo and radiation G. Dose Objectives: Curative Electronically signed by: Rick Daniel M.D. 11/02/2024 4:02 PM
--- NOTE | 2024-11-02 16:10 | CTCTXPLNST_ITS ---
Radiation Oncology Treatment Planning Sheet Name: ALYSSA MOLINA MR#: [id number] : 1955 Dx: C50.919 Malignant neoplasm of unspecified site of unspecified female breast Date of Service: 11/02/2024 Account #: ?? Pt Treatment Intent: curative palliative other: Stage: Procedure CPT # Ordered Spec. Procedure 09452 1 Garcia Complex (set-up) 22392 L breast/ 2 garcia 1 Garcia Simple 31531 1 IMRT Plan 81756 MLC Devices VMAT 45606 Garcia 3 D 52726 1 TRTMT dev Complex 73997 Vaklok/2F 3 TRTMT dev simple 66709 1 Basic Armando 40504 4 Special Dosimetry 27476 Spec Physics 43311 Port Films 70007 3 SRS Cranial/1FX 30118 SBR 5 FX or Less /ex: 5 = 5 fx 16904 IMRT Simple 51156 IMRT Complex 98625 IGRT 72091 Rad del com 6-10 44754 Rad del com 11- 68904 3990 15 Cont Med Physics 49129 3 Treatment Planning 81744 1 Rad del com 20 mev 33900 Rad del inter 01-18 64628 Rad del inter 06-29 15464 Rad del simple 610 13672 Rad del simple 06-29 76709 Special Port Plan 38980 TRTMT dev inter 09362 Isodose Complex 55937 Isodose simple 42065 Resp Motion Mgmt Simulation 47771 Placement of Fiducial Markers 49939 Electronically Signed By: Rick Daniel MD, WILMANR 11/02/2024 4:07 PM
--- NOTE | 2024-11-02 16:21 | CTCCONSULT_ITS ---
[facility] [address] [place], [place] [address] Consultation Note Date: 11/02/2024 MR#: [id number] Name: ALYSSA MOLINA : 1955 Dx: C50.919 Malignant neoplasm of unspecified site of unspecified female breast C55 uterine cancer Referring physician. Tricia Mims MD, [facility] Reason for consultation. Patient with stage I receptor negative HER2 overexpressed left breast CA status post partial mastectomy and stage IV endometrial CA status post neoadjuvant chemo and surgery. History of Present Illness: Patient is a sergey 69-year-old lady with a complicated problem of 2 separate primaries. Initially seen for abdominal pain and vaginal bleeding CT scan 03/22/2024 showed significant abdominal and pelvic lymphadenopathy suggestive of malignancy. Patient elected to be followed at [facility] where subsequent studies indicated that she had clear-cell uterine cancer and had neoadjuvant chemo for 6 cycles of carboplatin paclitaxel completing in August. Due to the discovery of left breast CA at the same time HER2/alina positive patient reportedly also received Herceptin. Patient subsequently had LAURA/BSO performed 09/17/2024 revealing scattered multi foci largest focus 1 cm d escribed to be pT2 with 33% myometrial invasion with margins negative. The tumor invaded the stromal connective tissue of cervix but not extending beyond the uterus. Nodes could not be determined on available pathologic information. Due to suspicion of extensive abdominal lymph node involvement and possible lung mets radiographically staged as possible stage IV. Patient also had simultaneous on 09/17/2024 left partial mastectomy for biopsy positive left breast CA at 1:00 6 x 7 mm showing ER negative RI negative Ki-67 70% HER2 positive by FISH 1 sentinel node negative for met Genetic testing 85 gene panel was negative for any path mutations. Patient subsequently also underwent ventral hernia repair at [facility] being transferred from [facility] ER on 09/22/2024. Patient also placed on Eliquis for left lower extremity occlusive thrombus. Stopped due to high cost. Patient was recommended to have radiation therapy to the left breast and also pelvic area which will include external beam and implants according to daughter. Recovering satisfactory and and not andon any pain medications now. Past Medical History: History of high blood pressure gallstones DVT left lower extremity Meds. Amlodipine mirtazapine hydrochlorothiazide gabapentin Eliquis Allergies none to meds Family history father of esophageal cancer. 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 Denies smoking drinking Review of Systems: Physical Exam: General: Adequate nourished appearing lady no acute distress HEENT: Atraumatic normocephalic extraocular is intact no oral lesion no cervical or supraclavicular adenopathy. CV: Chest clear to auscultation heart regular rate and rhythm breast not examined today. Port noted on her chest wall. 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 Left breast lumpectomy sentinel lymph node biopsy 09/17/2024 [id number] ER/RI negative Ki-67 70% HER2/alina positive by FISH. Patient reportedly had Herceptin along with chemo while receiving neoadjuvant chemo for uterine cancer. 3. Referred for radiation therapy to the residual tissue left breast as well as pelvis which will need brachytherapy as well. 4. I believe patient needs PET scan for staging particularly since there is question of lung mets and abdominal lymphadenopathy. 5. For now we could schedule her for short 3-week course to her left breast residual tissue. Side effects explained. 6. Thank you very much for allowing me to evaluate this patient. Cc: Tricia Mims MD, [facility] Lucero Monique MD [facility] Electronically signed by: Rick Daniel MD, DABR 11/02/2024 4:19 PM
== END 2024-11-08 23:59 | disposition home or self-care (01) ==
LOC: SCTC 13:01
PROVIDERS: PCP Family Medicine; Referring Provider Radiology Therapeutic Radiology; Visit Provider Radiology Therapeutic Radiology
DX: C50.412 Malignant neoplasm of upper-outer quadrant of left female breast (principal); Z17.1 Estrogen receptor negative status [ER-]; Z17.22 Progesterone receptor negative status; Z17.31 Human epidermal growth factor receptor 2 positive status; C54.1 Malignant neoplasm of endometrium; Z92.21 Personal history of antineoplastic chemotherapy; Z90.12 Acquired absence of left breast and nipple; R59.0 Localized enlarged lymph nodes
CPT/HCPCS: 99213; G0463

== ENCOUNTER 2024-11-04 16:47 | Emergency (ER) | payer MEDICARE, SELFPAY ==
[2024-11-04 17:45] VITALS: BP 183/84; PULSE 83; RESP 18; TEMP 36.9; O2SAT 98
--- NOTE | 2024-11-04 17:48 | XR_ITS ---
Examination: CT abdomen and pelvis without contrast. Coronal 3-D reconstructions. Sagittal 2-D reconstructions. Date and time of exam:November 04, 2024 8005 hours INDICATIONS: Abdominal pain and distention today, small bowel obstruction on CT abdomen and pelvis September 20, 2024, incarcerated bowel and hernia defect CTDI: vol (mGy): 6.64 DLP: (mGycm): 390 Technique: Axial images of the abdomen have been obtained, 3 mm slice thickness Intravenous contrast material has not been administered. Low dose protocols were performed. One or more of the following dose reduction techniques were used; automated exposure control, adjustment of the mA and/or KV according to patient size, use of iterative reconstruction technique. Findings: No focal liver or splenic lesion Gallstones Gallbladder wall appears mildly thickened Small pancreatic calcifications Mild nodular thickening left adrenal gland No hydronephrosis Fluid distended small bowel loops in the mid abdomen Abundant stool in the right colon Abundant stool in the rectum, marked thickening of the rectal wall No diverticulitis Status post anterior abdominal wall hernia repair IMPRESSION: Recommend hepatobiliary sonography to exclude cholecystitis Mild to moderately fluid distended small bowel loops although no incarcerated small bowel, clinical correlation advised, differential would include ileus, enteritis, early small bowel obstruction not excluded Marked thickening of the rectal wall, differential would include rectal tumor, clinical correlation advised
--- NOTE | 2024-11-04 17:48 | PD.EDRME ---
Rapid Medical Screening Exam RME Arrival date/time: 11/04/24 16:47 69-year-old female under cancer treatment for cancer presents to the emerged part today complains of abdominal pain and constipation Chief Complaint: Abdominal Pain Time Seen by Provider: 11/04/24 16:53 Vital signs: Vital Signs Temperature 98.5 F 11/04/24 17:45 Pulse Rate 83 11/04/24 17:45 Respiratory Rate 18 11/04/24 17:45 Blood Pressure 183/84 H 11/04/24 17:45 Pulse Oximetry (%) 98 11/04/24 17:45 Oxygen Delivery Method Room Air 11/04/24 17:45
[2024-11-04 18:37] LABS: Collection Type, Urine Clean Catch
[2024-11-04 18:41] LABS: Basophils % (Auto) 0 % (0-2.5); Eosinophils # (Auto) 0.2 Thou/mm3 (0.0-0.5); Eosinophils % (Auto) 2 % (0-10); Hematocrit 30.9 % (36.0-46.0); Hemoglobin 10.7 g/dL (12.0-16.0); Immature Granulocytes % (Auto) 0 % (0-0); Immature Granulocytes Auto 0.02 Thou/mm3 (0.00-0.00); Lymphocytes # (Auto) 3.5 Thou/mm3 (1.0-4.8); Lymphocytes % (Auto) 40 % (10-50); Mean Corpuscular HGB Conc 34.6 g/dl (31.0-37.0); Mean Corpuscular Volume 93 fL (80-100); Monocytes # (Auto) 0.6 Thou/mm3 (0.0-0.8); Monocytes % (Auto) 7 % (0-12); Neutrophils # (Auto) 4.4 Thou/mm3 (1.8-7.7); Neutrophils % (Auto) 50 % (37-80); Nucleated Red Blood Cell % 0 /100 WBC (0); Platelet Count 177 Thou/mm3 (140-440); RDW Standard Deviation 46.7 fL (36.4-46.3); Red Blood Count 3.34 Miln/mm3 (4.00-5.20); White Blood Count 8.8 Thou/mm3 (3.6-11.0)
[2024-11-04 18:47] LABS: Bilirubin,Urine Negative (Negative); Blood,Urine Negative (Negative); Clarity,Urine Clear (Clear/Hazy); Color,Urine Lt-Yellow (Lt Yel-Yel); Culture Indicated,Urine Not Indicated; Glucose, Urine Negative (Negative); Hyaline Casts,Urine < 1 /hpf (0-1); Ketones,Urine Trace (Negative); Leukocyte Esterase,Urine Negative (Negative); Nitrite,Urine Negative (Negative); Protein,Urine Negative (Neg - Trace); RBC,Urine 3 /hpf (0-3); Specific Gravity,Urine 1.015 (1.001-1.035); Squamous Epithelial Cell,Urine < 1 /hpf (0-5); Urobilinogen,Urine Negative mg/dL (0.0-1.0); WBC,Urine 1 /hpf (0-5)
[2024-11-04 19:14] LABS: Alanine Aminotransferase 8 U/L (10-49); Albumin, Serum 4.3 gm/dL (3.4-4.8); Albumin/Globulin Ratio 1.3 (1.2-2.2); Alkaline Phosphatase 81 U/L (46-116); Anion Gap 11 (7-16); Aspartate Amino Transferase 15 U/L (0-34); BUN/Creatinine Ratio 17 Ratio (12-20); Bilirubin,Total 0.7 mg/dL (0.3-1.2); Blood Urea Nitrogen 15 mg/dL (9-23); Calcium 9.9 mg/dL (8.3-10.6); Calcium (Corrected) 9.9 mg/dL (8.5-10.1); Carbon Dioxide 25.3 mMol/L (20.0-31.0); Chloride 101 mMol/L (98-107); Creatinine (Component) 0.9 mg/dL (0.6-1.3); Globulin 3.4 gm/dL (2.3-3.5); Glucose 101 mg/dL (74-106); Lipase 21 U/L (12-53); Osmolality,Calculated 274 (275-295); Potassium 4.4 mMol/L (3.4-5.1); Sodium 137 mMol/L (136-145); Total Protein 7.7 gm/dL (5.7-8.2); eGFR > 60 See Note
[2024-11-04 23:27] VITALS: BP 172/76; PULSE 73; RESP 15; TEMP 36.7; O2SAT 99
[2024-11-05 02:41] VITALS: BP 148/69; PULSE 56; RESP 18; O2SAT 99
[2024-11-05 02:42] VITALS: BP 148/64; PULSE 80; RESP 18; O2SAT 98
--- NOTE | 2024-11-05 03:51 | EDNOTE_ITS ---
ED Abdominal Pain RME/HPI General Chief Complaint: Abdominal Pain Stated complaint: SEND BY PCP FOR POSS SBO Time seen by provider: 11/04/24 16:53 Arrival date/time: 11/04/24 16:47 Limitations: no limitations RME / HPI RME / HPI narrative: 11/04/24 16:47 69-year-old female under cancer treatment for cancer presents to the emerged part today complains of abdominal pain and constipation Dr[facility] ED Evaluation: 69yo female with a history of breast CA, HTN, HLD presents to the ED for a chief complaint of constipation x 1 week. Patient states she has not had a normal bowel movement since last week. She states she started having generalized abdominal pain today and was concerned, so she came in for evaluation. She notes she has been pooping pellets . She denies any fever, chills, N/V or any other associated symptoms. She has not been evaluated by her PCP for her symptoms. No known allergies. Patient notes she had a hernia repair done in September of this year. Related Data Home Medications ?Medication ?Instructions ?Recorded ?Confirmed amlodipine 5 mg tablet 10 mg PO QDAY 07/17/2103/23 hydrochlorothiazide 25 mg tablet 25 mg PO QDAY 1 03/23/24 Previous Rx's ?Medication ?Instructions ?Recorded oxycodone-acetaminophen 5 mg-325 1 tab PO Q8H PRN pain #21 tabs 03/26/24 mg tablet potassium chloride 20 mEq/15 mL 20 meq (15 mL) PO QDAY #5 mL 06/21/24 oral liquid polyethylene glycol 3350 17 17 g PO BID constipation 1 4 days 11/05/24 gram/dose oral powder (Miralax) #119 grams Allergies Allergy/AdvReac Type Severity Reaction Status Date / Time No Known Allergies Allergy Verified 11/04/24 16:56 Review of Systems Review of Systems Systems Reviewed: All systems reviewed, normal except as documented Past Medical History Past Medical History NEUROLOGIC: Negative Neurological Disorders or Seizures CARDIAC: Positive Hypercholesterolemia, Edema and Hypertension; Negative Cardiac Disorders, Congestive Heart Failure, Cellulitis or Varicose Veins RESPIRATORY: Negative Chronic Obstructive Pulmonary Disease (COPD), Asthma, Tuberculosis, Pulmonary Embolism or Sleep Apnea GASTROINTESTINAL: Positive Gastrointestinal Disorders, Gastroesophageal Reflux Disease and Obesity; Negative Hepatitis GENITOURINARY: Positive Renal Disease; Negative Genitourinary Disorders REPRODUCTIVE: Positive Breast Cancer and Previous Pregnancies MUSCULOSKELETAL: Positive Musculoskeletal Disorders and Arthritis ENT: Positive Cataracts ENDOCRINE: Negative Endocrine Disorders, Diabetes Mellitus Type 1, Diabetes Mellitus Type 2 or Hypothyroidism HEMATOLOGIC: Negative Blood Disorders, Anemia or Sickle Cell Disease OTHER HISTORY: Positive Cancer and Breast Cancer; Negative Hospitalization, Autoimmune Disease, Shingles, Falls, Blood Transfusions, Anesthesia Reactions, Chemotherapy, Radiation Therapy, MRSA, Chicken Pox, Measles or Mumps Family History FAMILY HISTORY: Positive Family Respiratory Disorders, Family Cardiac Disorders, Family Gastrointestinal Problems, Family Cancer and Family Surgery; Negative Family Psychiatric Problems or Family Anesthesia Reaction Surgical History SURGICAL: Positive Abdominal Surgery, Tubal Ligation and Section; Negative Pacemaker Social History SMOKING STATUS: Never smoker SECOND HAND EXPOSURE: No ED Exam General Limitations: Present no limitations General appearance: Present alert and in no apparent distress Head Head exam: Present atraumatic Eye Eye exam: Present normal appearance, PERRL and EOMI ENT ENT exam: Present normal exam, normal oropharynx and mucous membranes moist Neck Neck exam: Present normal inspection, full ROM and trachea midline Chest Chest inspection: Present normal inspection and symmetric chest wall rise Respiratory Respiratory exam: Present normal lung sounds bilaterally Cardiovascular Cardiovascular exam: Present regular rate, normal rhythm and normal heart sounds Abdominal Exam Abdominal exam: Present soft; Absent distention or tenderness Extremities Exam Extremities exam: Present normal inspection and full ROM Back Exam Back exam: Present normal inspection and full ROM Neurological Exam Neurological exam: Present alert, oriented X3 and CN II-XII intact Psychiatric Psychiatric exam: Present normal affect and normal mood Skin Skin exam: Present warm, dry, intact and normal color Course Quality Measures none Orders Category Date Time Status CT abdomen pelvis wo con Stat Exams 11/04/24 17:48 Completed CBC Stat Lab 11/04/24 17:48 Completed Comprehensive Metabolic Panel Stat Lab 11/04/24 18:17 Completed Lipase Stat Lab 11/04/24 18:17 Completed UA, C/S IF [Urinalysis, C/S if Indicated] Stat Lab 11/04/24 18:31 Completed Magnesium Citrate Liqd [Citrate of Magnesia Liqd] Med 11/05/24 04:08 Discontinued 150 ml PO X1 ONE Vital Signs Vital signs: Vital Signs Temperature 98.5 F 11/04/24 17:45 Pulse Rate 83 11/04/24 17:45 Respiratory Rate 18 11/04/24 17:45 Blood Pressure 183/84 H 11/04/24 17:45 Pulse Oximetry (%) 98 11/04/24 17:45 Oxygen Delivery Method Room Air 11/04/24 17:45 Abdominal Pain MDM Patient data External records reviewed:: [facility] previous records (Per chart review, patient was seen here on 09/20/24 for incarcerated ventral hernia.) Clinical information provided by:: patient Social determinants that could affect healthcare access:: none Patient has the following chronic illnesses:: breast CA, HTN, HLD How is presenting disease/condition affected by chronic disease/condition?: uneffected by Evaluation data The following diagnostics were reviewed and interpreted by me:: lab results and radiology exam(s) Lab and/or radiology exams considered but not ordered:: none Interpretation Summary: CBC is normal, CMP is normal, Lipase is normal, UA is unremarkable, according to my interpretation. --------- [facility] Report Signed Patient: ALYSSA MOLINA. Record#: [id number] Birthdate: 1955 Age/Sex: 69 / F Location: [facility] Attending Dr: Ordering Physician: Mony GENTILE)Taye NP Date of Service: 11/04/24 Procedure(s): CT abdomen pelvis wo [facility] Accession Number(s): [id number] cc: Mony GENTILE),Taye HANCOCK; Osvaldo Severino MD; John Dempsey MD~ Examination: CT abdomen and pelvis without contrast. Coronal 3-D reconstructions. Sagittal 2-D reconstructions. Date and time of exam:November 04, 2024 8005 hours INDICATIONS: Abdominal pain and distention today, small bowel obstruction on CT abdomen and pelvis September 20, 2024, incarcerated bowel and hernia defect CTDI: vol (mGy): 6.64 DLP: (mGycm): 390 Technique: Axial images of the abdomen have been obtained, 3 mm slice thickness Intravenous contrast material has not been administered. Low dose protocols were performed. One or more of the following dose reduction techniques were used; automated exposure control, adjustment of the mA and/or KV according to patient size, use of iterative reconstruction technique. Findings: No focal liver or splenic lesion Gallstones Gallbladder wall appears mildly thickened Small pancreatic calcifications Mild nodular thickening left adrenal gland No hydronephrosis Fluid distended small bowel loops in the mid abdomen Abundant stool in the right colon Abundant stool in the rectum, marked thickening of the rectal wall No diverticulitis Status post anterior abdominal wall hernia repair IMPRESSION: Recommend hepatobiliary sonography to exclude cholecystitis Mild to moderately fluid distended small bowel loops although no incarcerated small bowel, clinical correlation advised, differential would include ileus, enteritis, early small bowel obstruction not excluded Marked thickening of the rectal wall, differential would include rectal tumor, clinical correlation advised Dictated By: Osvaldo Severino MD Signed By: <Electronically signed by Osvaldo Severino MD in OV> 11/04/24 192 Medications / Prescriptions Medications or Prescriptions considered but not ordered:: none Medication administrations:: Medication Administration History Discontinued Medications Magnesium Citrate (Magnesium Citrate 300 Ml Btl) 150 ml PO X1 ONE Stop: 11/05/24 04:09 see above, if any Consultations Consultation(s) initiated? (list below): No Diagnosis Differential diagnosis abdominal pain: constipation, small bowel obstruction and other (ileus) Most likely diagnosis given after review of the tests above:: see clinical impression below Admission Indicated Admission indicated?: not indicated Admission Request Was there a request for admission?: No Disposition Plan Disposition Plan: Discharge Discharge Attestation Discharge Attestation: The patient and all family members were given an opportunity to ask questions and understood the discharge instructions. Discharge instructions specifically effects, indications for sooner follow up or return to the emergency department, and the expected course of current diagnosis. Patient condition: Stable Discharge Plan Plan Patient Disposition: HOME (Self Care) Patient condition on transfer: Stable Prescriptions/Referrals Prescriptions/Med Rec: New polyethylene glycol 3350 [Miralax] 17 gram/dose powder 17 g PO BID 14 Days Qty: 119 2RF Rx Instructions: And then once a day for 1 week and then talk to your primary care to see if you need to continue this medication. No Action amlodipine 5 mg tablet 10 mg PO QDAY hydrochlorothiazide 25 mg tablet 25 mg PO QDAY oxycodone-acetaminophen 5-325 mg tablet 1 tab PO Q8H MDD 15MG PRN (Reason: pain) Qty: 21 0RF potassium chloride 20 mEq/15 mL liquid 20 meq PO QDAY Qty: 5 0RF Referrals: John Dempsey MD [Primary Care Provider] - In 1 week Problem List Clinical Impression: Abdominal pain Patient/Caregiver Discharge Instructions Education Materials: ED Constipation (Adult), ED Flank Pain, Uncertain Cause Additional Instructions: Today your CAT scan does not show that you have an obstruction or that you need an operation. Please start the medication as prescribed so that you can start having more regular bowel movements. Increase your water intake so that you can stay hydrated. Call your doctor today to let them know that you are here in the emergency department and make an appointment for Friday. Return for worsening symptoms, or any other concerns Print Language: Guatemalan Stand Alone Forms: [employer] Award Info., Patient Portal Info Letter
[2024-11-05] MEDS: MAGNESIUM CITRATE 300 ML BTL 150 ML PO (04:45)
[2024-11-05 04:53] VITALS: BP 148/70; PULSE 72; RESP 18; TEMP 36.6; O2SAT 96
== END 2024-11-05 04:55 | disposition home or self-care (01) ==
PROVIDERS: Nurse Practitioner Primary Care; Emergency Provider Emergency Medicine; PCP Internal Medicine
DX: K63.89 Other specified diseases of intestine (principal); K62.89 Other specified diseases of anus and rectum
CPT/HCPCS: 36415; 74176; 80053; 81001; 83690; 85025; 99284; A9270

== ENCOUNTER → 2024-12-07 | Outpatient (CLI) | payer MEDICARE, SELFPAY ==
--- NOTE | 2024-12-07 14:00 | XR_ITS ---
EXAMINATION: PET/CT FUSION SKULL TO THIGH EXAM DATE AND TIME: December 07, [address] abdomen pelvis November 04, 2024, CT chest September 20, 2024 INDICATIONS: Diagnosis cervical cancer, staging CTDI:vol (mGy) 3.92 DLP: (mGycm) 358 PROCEDURE: 15.5 mCi FDG was administered intravenously To allow for distribution and uptake of radiotracer, the patient was allowed to rest quietly in a shielded room. Imaging was performed on an integrated 16-slice PET/CT scanner, with scanning from the skull base to the mid thigh. Serum blood glucose at the time of the injection was measured 92 mg/dL. CT scanning was performed without oral or intravenous contrast material. FINDINGS: Head and Neck: Hypermetabolic left retroclavicular lymph nodes, 8 mm, 6 mm, 6 mm Hypermetabolic lower cervical lymph node, lateral to the left thyroid, 12 mm, adjacent node 6 mm Chest: Hypermetabolic right subcarinal lymph node 12 mm Hypermetabolic 22 mm right axillary lymph node Abdomen and Pelvis: 14 mm hypermetabolic upper right periaortic lymph node Multiple hypermetabolic the aortic and left lateral periaortic pericaval lymph nodes, the largest 32 mm axial image 147 Lower right periaortic hypermetabolic lymphadenopathy, 6 mm Right external iliac hypermetabolic lymphadenopathy 8 mm. Musculoskeletal: Hypermetabolic greater trochanter left hip IMPRESSION: Extensive hypermetabolic cervical, mediastinal, right axillary, abdominal and pelvic lymphadenopathy Suspicious for osseous metastatic disease left hip
== END | disposition home or self-care (01) ==
PROVIDERS: Referring Provider Radiology Therapeutic Radiology; Visit Provider Radiology Therapeutic Radiology
DX: R59.0 Localized enlarged lymph nodes (principal); C50.919 Malignant neoplasm of unspecified site of unspecified female breast; C55 Malignant neoplasm of uterus, part unspecified; C50.212 Malignant neoplasm of upper-inner quadrant of left female breast; C54.1 Malignant neoplasm of endometrium
CPT/HCPCS: 78815; A9552

== ENCOUNTER 2024-12-08 13:49 | Outpatient (RCR) | payer MEDICARE, SELFPAY | END 2024-12-08 23:59 | disposition home or self-care (01) | LOC: SCTC 13:49 | PROVIDERS: PCP Internal Medicine; Referring Provider Internal Medicine; Visit Provider Radiology Therapeutic Radiology | DX: Z51.0 Encounter for antineoplastic radiation therapy (principal); C50.412 Malignant neoplasm of upper-outer quadrant of left female breast; Z17.1 Estrogen receptor negative status [ER-]; Z17.22 Progesterone receptor negative status; Z17.32 Human epidermal growth factor receptor 2 negative status; C54.1 Malignant neoplasm of endometrium; Z90.710 Acquired absence of both cervix and uterus; Z90.722 Acquired absence of ovaries, bilateral; R59.1 Generalized enlarged lymph nodes | CPT/HCPCS: 77014; 77280; 77290; 77295; 77300; 77334; 77336; 77412; 77417; 78815; A9552 ==

== ENCOUNTER → 2024-12-27 | Outpatient (CLI) | payer MEDICARE, SELFPAY | END | disposition home or self-care (01) | LOC: CDIM 15:00 | PROVIDERS: Referring Provider Internal Medicine; Visit Provider Internal Medicine | DX: Z53.8 Procedure and treatment not carried out for other reasons (principal) ==

== ENCOUNTER → 2024-12-28 | Outpatient (CLI) | payer MEDICARE, SELFPAY ==
--- NOTE | 2024-12-28 12:47 | XR_ITS ---
Examination:Left hip AP, lateral, AP pelvis 3 views Technique: Hip AP lateral, AP pelvis, 3 views Exam date and time:December 28, 2024 1410 hours INDICATIONS: Left hip pain beginning 2 weeks ago FINDINGS: Moderate osteopenia. Mild bilateral narrowing hip joints No left or right hip fracture or dislocation Bones of the pelvis intact IMPRESSION: Bilateral mild hip osteoarthritis.
== END | disposition home or self-care (01) ==
PROVIDERS: PCP Internal Medicine; Referring Provider Internal Medicine; Visit Provider Internal Medicine
DX: M16.0 Bilateral primary osteoarthritis of hip (principal)
CPT/HCPCS: 73502

== ENCOUNTER 2025-01-07 07:30 | Outpatient (RCR) | payer MEDICARE, SELFPAY ==
--- NOTE | 2024-12-17 15:29 | CTCTXPLN_ITS ---
[facility] [address] [place], [place] [address] Physician Clinical Treatment Planning Note Date of Service: 12/17/2024 Name: ALYSSA MOLINA : 1955 The patient has agreed to proceed with Radiation therapy. Tests and supporting medical records were interpreted to assist in defining the tumor location and extent of disease. Further imaging will be necessary to contour and delineate the volume to which the XRT will be provided. A. Treatment Intent: Curative B. Modality: 10 MV C. Requested Technique: 3D D. Treatment Site: Pelvis E. Critical structures to be contoured on plan: F. In order to accomplish this plan, I am ordering/Prescribing the followin. Simulations (s) will be performed to accomplish a reproducible treatment position, to determine optimal treatment portals/beam arrangements, to design beam modifying devices and verify treatment portals on patient prior to the commencement of Radiation Therapy. Pelvis 2. Devices; for immobilization and beam shaping: Vac-Kuldip 3. CT Guidance for placement of XRT aviles Scan area: 4. Portal images Frequency: 5. Invivo transit dose measurement once per week on all VMAT patients. 6. Special Physics Consult Requested for: 7. Other requests: Special procedure chemo radiation G. Dose Objectives: Curative Electronically signed by: Rick Daniel M.D. 12/17/2024 3:27 PM
--- NOTE | 2024-12-17 15:32 | CTCTXPLNST_ITS ---
Radiation Oncology Treatment Planning Sheet Name: ALYSSA MOLINA MR#: [id number] : 1955 Dx: C50.919 Malignant neoplasm of unspecified site of unspecified female breast Date of Service: 12/17/2024 Account #: ?? Pt Treatment Intent: curative palliative other: Stage: Procedure CPT # Ordered Spec. Procedure 90878 chemoXRT 1 Garcia Complex (set-up) 08357 T 10- pelvis 1` Garcia Simple 99663 1 IMRT Plan 82225 MLC Devices VMAT 45705 Garcia 3 D 22014 1 TRTMT dev Complex 00042 Vaklok/2F 3 TRTMT dev simple 71434 Basic Armando 10623 2 Special Dosimetry 23014 Spec Physics 74635 Port Films 39717 5 SRS Cranial/1FX 40647 SBR 5 FX or Less /ex: 5 = 5 fx 31392 IMRT Simple 21568 IMRT Complex 23737 IGRT 00698 Rad del com 6- 14848 Rad del com 06-29 86797 4500 25 Cont Med Physics 08987 5 Treatment Planning 18484 1 Rad del com 20 mev 41278 Rad del inter 01-18 08957 Rad del inter 06-29 13760 Rad del simple 6 18489 Rad del simple 06-29 52872 Special Port Plan 89105 TRTMT dev inter 27932 Isodose Complex 68781 Isodose simple 32236 Resp Motion Mgmt Simulation 15168 Placement of Fiducial Markers 89413 Electronically Signed By: Rick Daniel MD, WILMANR 12/17/2024 3:29 PM
== END 2025-01-08 23:59 | disposition home or self-care (01) ==
LOC: SCTC 07:30
PROVIDERS: PCP Internal Medicine; Referring Provider Internal Medicine; Visit Provider Radiology Therapeutic Radiology
DX: Z51.0 Encounter for antineoplastic radiation therapy (principal); C50.412 Malignant neoplasm of upper-outer quadrant of left female breast; Z17.1 Estrogen receptor negative status [ER-]; Z17.22 Progesterone receptor negative status; Z17.31 Human epidermal growth factor receptor 2 positive status; C55 Malignant neoplasm of uterus, part unspecified; Z90.12 Acquired absence of left breast and nipple; Z90.710 Acquired absence of both cervix and uterus; Z90.722 Acquired absence of ovaries, bilateral
CPT/HCPCS: 36591; 73502; 77014; 77280; 77290; 77295; 77300; 77334; 77336; 77412; 77417; A4216; J1642

== ENCOUNTER 2025-01-31 07:35 | Outpatient (RCR) | payer MEDICARE, SELFPAY ==
[2025-01-07 09:17] LABS: Basophils % (Auto) 0 % (0-2.5); Eosinophils # (Auto) 0.1 Thou/mm3 (0.0-0.5); Eosinophils % (Auto) 3 % (0-10); Hematocrit 28.5 % (36.0-46.0); Immature Granulocytes % (Auto) 0 % (0-0); Immature Granulocytes Auto 0.01 Thou/mm3 (0.00-0.00); Lymphocytes # (Auto) 0.4 Thou/mm3 (1.0-4.8); Lymphocytes % (Auto) 11 % (10-50); Mean Corpuscular HGB Conc 35.1 g/dl (31.0-37.0); Mean Corpuscular Hemoglobin 32.1 pg (25.0-35.0); Mean Corpuscular Volume 91 fL (80-100); Monocytes # (Auto) 0.3 Thou/mm3 (0.0-0.8); Monocytes % (Auto) 8 % (0-12); Neutrophils # (Auto) 2.7 Thou/mm3 (1.8-7.7); Neutrophils % (Auto) 77 % (37-80); Nucleated Red Blood Cell % 0 /100 WBC (0); Platelet Count 115 Thou/mm3 (140-440); RDW Standard Deviation 41.7 fL (36.4-46.3); Red Blood Count 3.12 Miln/mm3 (4.00-5.20); White Blood Count 3.4 Thou/mm3 (3.6-11.0)
[2025-01-07 09:49] LABS: Alanine Aminotransferase < 7 U/L (10-49); Albumin, Serum 4.4 gm/dL (3.4-4.8); Albumin/Globulin Ratio 1.5 (1.2-2.2); Alkaline Phosphatase 82 U/L (46-116); Anion Gap 12 (7-16); Aspartate Amino Transferase 11 U/L (0-34); BUN/Creatinine Ratio 30 Ratio (12-20); Bilirubin,Total 0.7 mg/dL (0.3-1.2); Blood Urea Nitrogen 27 mg/dL (9-23); Calcium 9.3 mg/dL (8.3-10.6); Calcium (Corrected) 9.3 mg/dL (8.5-10.1); Carbon Dioxide 25.2 mMol/L (20.0-31.0); Chloride 105 mMol/L (98-107); Creatinine (Component) 0.9 mg/dL (0.6-1.3); Glucose 206 mg/dL (74-106); Osmolality,Calculated 294 (275-295); Potassium 3.7 mMol/L (3.4-5.1); Sodium 142 mMol/L (136-145); Total Protein 7.4 gm/dL (5.7-8.2); eGFR > 60 See Note
--- NOTE | 2025-01-10 09:46 | CTCTRTNOTE_ITS ---
[facility] [address] [place], [place] [address] Weekly Management Date: 01/10/2025 ?? Name: ALYSSA MOLINA : 1955 A. Patient is currently at 1800 cGy. Pelvis and periaortic's left hip will be planned today B. Patient is having pain in left hip. C. Had labs 01/07/2025 WBC 3.4 hemoglobin 10.0 platelets 1 15,000. Patient given D. . E. Resume radiation therapy. Electronically signed by: Rick Daniel M.D. 01/10/2025 9:44 AM
== END 2025-02-07 23:59 | disposition home or self-care (01) ==
LOC: SCTC 07:35
PROVIDERS: PCP Internal Medicine; Referring Provider Internal Medicine; Visit Provider Radiology Therapeutic Radiology
DX: Z51.0 Encounter for antineoplastic radiation therapy (principal); C54.1 Malignant neoplasm of endometrium; C50.412 Malignant neoplasm of upper-outer quadrant of left female breast; Z17.1 Estrogen receptor negative status [ER-]; Z17.22 Progesterone receptor negative status; Z17.31 Human epidermal growth factor receptor 2 positive status; Z90.12 Acquired absence of left breast and nipple; M25.552 Pain in left hip
CPT/HCPCS: 77280; 77295; 77300; 77334; 77336; 77412; 77417; 80053; 85025

== ENCOUNTER 2025-02-15 10:11 | Outpatient (RCR) | payer MEDICARE, SELFPAY ==
--- NOTE | 2025-02-15 11:01 | CTCTSUMM_ITS ---
[facility] [address] [place] [address] Treatment Summary Date: 02/15/2025 MR#: [id number] Name: ALYSSA MOLINA : 1955 Dx: C50.919 Referring Physician: Tricia Mims MD (A) Diagnosis: [ICD10] C50.919 Malignant neoplasm of unspecified site of unspecified female breast; [ICD10] C55 Malignant neoplasm of uterus, part unspecified (B) Aim of Treatment: ??Curative/palliative (C) Concomitant Chemotherapy: Sequential (D) Radiation Dates: Left breast 11/22/2024 through 12/06/2024 (E) Pelvis PA 12/27/2024 through 01/31/2025 left hip 01/13/2025 through 01/25/2025 Treatment Prescription L hip 2 FLD 10MV 3,000 cGy 10 300 cGy Approved pelvis/PA 2 FLD 10MV 4,500 cGy 25 180 cGy Approved L breast 2 FIELD SEG Mixed Mode 3,990 cGy 15 266 cGy Approved (F) All aviles were treated using customized MLC Blocks (G) Finding at Discharge: Patient tolerated treatment well. Left hip bone mets was noted and this was added to the treatment field. When seen for follow-up patient was appearing well but had some cough symptoms for which she will be seeing her primary care physician tomorrow. (H) Discharge Instructions and F/U Appt was given: The patient was also advised to continue follow-up with Dr. Monique/[facility] and primary care physician: Cc: Lucero Monique MD Electronically signed by: Rick Daniel MD, DABR 02/15/2025 10:59 AM
== END 2025-03-10 23:59 | disposition home or self-care (01) ==
LOC: SCTC 10:11
PROVIDERS: PCP Internal Medicine; Referring Provider Internal Medicine; Visit Provider Radiology Therapeutic Radiology
DX: C55 Malignant neoplasm of uterus, part unspecified (principal); C50.912 Malignant neoplasm of unspecified site of left female breast; C79.51 Secondary malignant neoplasm of bone; Z17.1 Estrogen receptor negative status [ER-]; Z17.22 Progesterone receptor negative status; Z17.31 Human epidermal growth factor receptor 2 positive status; Z90.12 Acquired absence of left breast and nipple; Z92.3 Personal history of irradiation
CPT/HCPCS: 99212; G0463

== ENCOUNTER → 2025-02-17 | Outpatient (CLI) | payer MEDICARE, SELFPAY ==
--- NOTE | 2025-02-17 | XR_ITS ---
Examination: PA lateral chest 2 views TECHNIQUE: Upright PA and lateral chest 2 views Date and time: February 17, 2025 0719 hours Comparison August 02, 2024 INDICATIONS: Diagnosis breast cancer, surgical cancer, post surgery September 17, 2024, shortness of breath one week FINDINGS: Mild prominence of ventricle Right internal jugular Port-A-Cath tip satisfactory position Left axillary surgical clips Increased AP dimension chest, mild hyperexpansion Moderate thoracic spondylosis No lobar pneumonia or pulmonary edema IMPRESSION: Mild hyperexpansion. No pneumonia or pulmonary edema
[2025-02-17 08:22] LABS: Collection Type, Urine Clean Catch
[2025-02-17 09:11] LABS: COVID-19 Antigen (In-House) Negative (Negative)
[2025-02-17 09:18] LABS: Urea Breath Test Negative (Negative)
[2025-02-17 09:21] LABS: Bilirubin,Urine Negative (Negative); Blood,Urine Trace (Negative); Clarity,Urine Turbid (Clear/Hazy); Color,Urine Yellow (Lt Yel-Yel); Culture Indicated,Urine Not Indicated; Glucose, Urine Negative (Negative); Hyaline Casts,Urine 1 /hpf (0-1); Ketones,Urine Negative (Negative); Leukocyte Esterase,Urine Positive (Negative); Nitrite,Urine Negative (Negative); PH,Urine 5.5 (5.0-7.0); Protein,Urine Trace (Neg - Trace); RBC,Urine 3 /hpf (0-3); Specific Gravity,Urine 1.027 (1.001-1.035); Squamous Epithelial Cell,Urine 6 /hpf (0-5); Urobilinogen,Urine Negative mg/dL (0.0-1.0); WBC,Urine 3 /hpf (0-5)
== END | disposition home or self-care (01) ==
LOC: CDIM 06:46
PROVIDERS: PCP Internal Medicine; Referring Provider Internal Medicine; Visit Provider Internal Medicine
DX: R91.8 Other nonspecific abnormal finding of lung field (principal); K21.9 Gastro-esophageal reflux disease without esophagitis; K44.9 Diaphragmatic hernia without obstruction or gangrene; R39.9 Unspecified symptoms and signs involving the genitourinary system; Z11.52 Encounter for screening for COVID-19
CPT/HCPCS: 71046; 81001; 83013; 83014; 87811

== ENCOUNTER 2025-04-30 23:58 | Inpatient (IN) | payer MEDICARE, SELFPAY ==
[2025-05-01] VITALS (22 sets, daily range): BP systolic 89–142; BP diastolic 47–76; PULSE 80–96; RESP 12–23; TEMP 36–37.6; O2SAT 90–99; BMI 17.6
--- NOTE | 2025-05-01 00:08 | EDNOTE_ITS ---
ED Fall Injury RME/HPI General Chief Complaint: Fall Stated Complaint: FELL Time Seen by Provider: 05/01/25 00:15 Arrival date/time: 04/30/25 23:58 RME / HPI RME / HPI Narrative: See MDM for Dr. Daniel's HPI Documentation. Related Data Home Medications ?Medication ?Instructions ?Recorded ?Confirmed amlodipine 5 mg tablet 10 mg PO QDAY 07/17/2103/23 hydrochlorothiazide 25 mg tablet 25 mg PO QDAY 1 03/23/24 Previous Rx's ?Medication ?Instructions ?Recorded oxycodone-acetaminophen 5 mg-325 1 tab PO Q8H PRN pain #21 tabs 03/26/24 mg tablet potassium chloride 20 mEq/15 mL 20 meq (15 mL) PO QDAY #5 mL 06/21/24 oral liquid polyethylene glycol 3350 17 17 g PO BID constipation 1 4 days 11/05/24 gram/dose oral powder (Miralax) #119 grams Allergies Allergy/AdvReac Type Severity Reaction Status Date / Time No Known Allergies Allergy Verified 04/30/25 23:59 Review of Systems Review of Systems Systems Reviewed: All systems reviewed, normal except as documented Past Medical History Past Medical History CARDIAC: Positive Hypercholesterolemia, Edema and Hypertension GASTROINTESTINAL: Positive Gastroesophageal Reflux Disease and Obesity GENITOURINARY: Positive Renal Disease REPRODUCTIVE: Positive Breast Cancer and Previous Pregnancies MUSCULOSKELETAL: Positive Arthritis ENT: Positive Cataracts OTHER HISTORY: Positive Cancer and Breast Cancer Family History FAMILY HISTORY: Positive Family Respiratory Disorders, Family Cardiac Disorders, Family Gastrointestinal Problems, Family Cancer and Family Surgery Surgical History SURGICAL: Positive Abdominal Surgery, Tubal Ligation and Section ED Exam Narrative Physical exam: See MDM for Dr. Daniel's Physical Exam Documentation. Course Quality Measures none Orders Category Date Time Status Admit to Inpatient Status Routine Admission 05/01/25 05:07 Active Patient Condition Routine Admission 05/01/25 05:06 Ordered Bedside COVID-19 Antigen Test NOW Care 05/01/25 00:11 Active Bedside Influenza A&B Antigen Test NOW Care 05/01/25 00:11 Completed COVID-19 Screening Questionnaire NOW Care 05/01/25 04:22 Active Decision to Admit X1 Care 05/01/25 04:22 Completed EKG (ED ONLY) *Do not use* NOW Care 05/01/25 00:12 Completed Notify provider NEEDED Care 05/01/25 05:06 Active Saline [Insert IV] NOW Care 05/01/25 00:11 Active Straight [In and Out Catheter] X1 Care 05/01/25 00:11 Completed Transfuse,blood/blood products NOW Care 05/01/25 03:05 Active Transfuse,blood/blood products NOW Care 05/01/25 03:12 Active Wound Care [Wound Care] NOW Care 05/01/25 00:13 Active Referral Hospice Stat Cons 05/01/25 05:[address] cervical spine wo con Stat Exams 05/01/25 00:[address] chest abdomen pelvis wo Stat Exams 05/01/25 00:[address] facial bones wo con Stat Exams 05/01/25 00:[address] head/brain wo con Stat Exams 05/01/25 00:12 Completed EKG (ED Only) Stat Exams 05/01/25 00:12 Draft XR chest 1V portable Stat Exams 05/01/25 00:12 Completed Ammonia Stat Lab 05/01/25 00:47 Completed Amylase Stat Lab 05/01/25 00:47 Completed BNP [B-Type Natriuretic Peptide] Stat Lab 05/01/25 00:47 Completed Beta Hydroxybutyrate Stat Lab 05/01/25 00:47 Completed Bilirubin,Direct Stat Lab 05/01/25 00:47 Completed Blood Culture (Lab) Stat Lab 05/01/25 00:43 Results CBC Stat Lab 05/01/25 00:47 Completed CK [Creatine Kinase] Stat Lab 05/01/25 00:47 Completed CMP [Comprehensive Metabolic Panel] Stat Lab 05/01/25 00:47 Completed CRP [C-Reactive Protein] Stat Lab 05/01/25 00:47 Completed ESR [Sed Rate (ESR)] Stat Lab 05/01/25 00:47 Completed Lactate (Lactic Acid) Stat Lab 05/01/25 00:47 Completed Lactic Acid, 3 HR Stat Lab 05/01/25 04:16 Completed Magnesium Stat Lab 05/01/25 00:47 Completed PT [Prothrombin Time with INR] Stat Lab 05/01/25 00:47 Completed PTT [Partial Thromboplastin Time] Stat Lab 05/01/25 00:47 Completed Path Review Blood Smear Stat Lab 05/01/25 00:47 Completed Pheresis Platelets Stat Lab 05/01/25 04:10 Results Procalcitonin Stat Lab 05/01/25 00:47 Completed TSH [Thyroid Stimulating Hormone] Stat Lab 05/01/25 00:47 Completed Troponin I Stat Lab 05/01/25 00:47 Completed Troponin I Stat Lab 05/01/25 04:16 Completed Type and Screen Stat Lab 05/01/25 04:10 Results UA, C/S IF [Urinalysis, C/S if Indicated] Stat Lab 05/01/25 04:10 Completed Venous Blood Gas Stat Lab 05/01/25 01:43 Completed prbc [Red Blood Cells] Stat Lab 05/01/25 04:10 Results Bacitracin Oint pkt Med 05/01/25 00:13 Discontinued 1 gm TOP X1 ONE Ondansetron Inj [Zofran Inj] Med 05/01/25 00:11 Discontinued 4 mg IVP X1 ONE Sodium Chloride 0.9% 1000 ml [Ns] 1,000 ml Med 05/01/25 05:15 Discontinued IV 50 mls/hr Sodium Chloride 0.9% 1000 ml [Ns] 1,000 ml Med 05/01/25 00:11 Discontinued IV 999 mls/hr Sodium Chloride 0.9% 1000 ml [Ns] 1,000 ml Med 05/01/25 03:17 Discontinued IV 999 mls/hr TET,DIP/PERT AC (Adult)-Tdap [Boostrix Adult (Tdap) Med 05/01/25 00:13 Discontinued Vacc] 0.5 ml IMI .ONCE ONE ceFAZolin/D5W 1 GM IVPB [Ancef Ivpb] Med 05/01/25 00:13 Discontinued 1 gm in 50 ml IV X1 Code Status Routine Oth 05/01/25 05:06 Ordered Referral Childcare Center Director NOW 05/01/25 05:09 Active Vital Signs Vital signs: Vital Signs Pulse Rate 90 05/01/25 00:03 Respiratory Rate 20 05/01/25 00:03 Blood Pressure 89/57 L 05/01/25 00:03 Pulse Oximetry (%) 98 05/01/25 00:03 Oxygen Delivery Method Room Air 05/01/25 00:03 Fall MDM Narrative MDM Narrative:: This section includes all my notes and documentations, including HPI, PE, and ED course. Driss Daniel MD HPI: 70 y/o female with uterine and breast cancer with metastasis here after fall and possible syncope. She needs family help to stand and ambulate. She was in the bathroom on toilet. Family heard a fall and she was found on the floor. Family reports decreased mental status. Can't obtain history from the patient due to AMS. ROS: Can't obtain from the patient due to current clinical condition. Physical Exam: General: Patient is lethargic. Severely emaciated. HEENT: Conjunctivae and lids clear. EOMI. PERRL. [place] sized frontal scalp hematoma noted. Neck: No obvious tenderness. Heart: RRR. Lungs: No respiratory distress. Decreased air movement. No severe rhonchi, wheezing, rales. Chest: No tenderness. Abdomen: Soft and nontender. Back: No tenderness. Skin: Warm and dry. Neuro: Cranial Nerves II-XII grossly intact. No peripheral motor deficits. Musculoskeletal: All major joints and bones are not tender with no limited ROM. I reviewed all diagnostic test results: My interpretation of the EKG is: Sinus rhythm (95 bpm) with nonspecific ST-T changes. My interpretation of the chest x-ray is infiltrates. My review of the Head/Brain CT report is cerebral metastases. My review of the Facial Bones CT report is no fracture. My review of the C-Spine CT report is no fracture. My review of the Chest/Abdomen/Pelvis CT report is pneumonia and metastases. Blood tests and urine tests remarkable for severe anemia and severe thrombocytopenia. Covid/Influenza: Negative. At this point, diagnoses include: Head injury Metastases Severe anemia Thrombocytopenia Fall Scalp hematoma Pneumonia From mn, treatment included: IVF Wound care with topical ABX Tdap Ancef 1 g IV Zofran 4 mg IV I discussed the case with our hospitalist. About the presentation and exam and diagnostics and treatments here. And need of further care in the hospital. Will accept the patient. Driss Daniel MD Patient data External records reviewed:: [facility] previous records (Reviewed prior ED records from 11/05/24. Patient was seen for Abdominal pain.) Clinical information provided by:: family (Daughter) Social determinants that could affect healthcare access:: none Patient has the following chronic illnesses:: Hypercholesterolemia, Edema, Hypertension, Gastroesophageal Reflux Disease, Obesity, Renal Disease, Breast Cancer, Arthritis, Cataracts How is presenting disease/condition affected by chronic disease/condition?: exacerbated by Evaluation data The following diagnostics were reviewed and interpreted by me:: lab results, radiology exam(s) and EKG tracing(s) (My interpretation of the EKG is: Sinus rhythm (95 bpm) with nonspecific ST-T changes. Driss Daniel MD) Lab and/or radiology exams considered but not ordered:: None Interpretation Summary: I reviewed all diagnostic test results: My interpretation of the EKG is: Sinus rhythm (95 bpm) with nonspecific ST-T changes. My interpretation of the chest x-ray is infiltrates. My review of the Head/Brain CT report is cerebral metastases. My review of the Facial Bones CT report is no fracture. My review of the C-Spine CT report is no fracture. My review of the Chest/Abdomen/Pelvis CT report is pneumonia and metastases. Blood tests and urine tests remarkable for severe anemia and severe thrombocytopenia. Covid/Influenza: Negative. Medications / Prescriptions Medications or Prescriptions considered but not ordered:: None Medication administrations:: Medication Administration History Dexamethasone Sodium Phosphate (Dexamethasone Sod Phos Inj 10 Mg/Ml Vial) 8 mg IVP BID IZAIAH Stop: 05/31/25 08:59 Last Admin: 05/01/25 20:37 Dose: 8 mg Documented By: Admin: 05/01/25 08:51 Dose: 8 mg Documented By: BUDDY Dextrose (D5w) 1,000 mls @ 50 mls/hr IV .Q20H IZAIAH Stop: 05/31/25 18:29 Last Admin: 05/01/25 18:37 Dose: 50 mls/hr Documented By: BUDDY Levetiracetam (Levetiracetam Inj 100 Mg/Ml Vial 5ml) 500 mg IVP Q12HR IZAIAH Stop: 05/31/25 08:59 Last Admin: 05/01/25 20:37 Dose: 500 mg Documented By: Admin: 05/01/25 08:51 Dose: 500 mg Documented By: BUDDY Morphine Sulfate (Morphine Sulf Inj 4 Mg/Ml Vial) 1 mg IVP Q4HR PRN PRN Reason: PAIN SCALE 4-10(Mod-Sev Stop: 05/06/25 06:09 Last Admin: 05/01/25 20:43 Dose: 1 mg Documented By: Admin: 05/01/25 15:10 Dose: 1 mg Documented By: BUDDY Pantoprazole Sodium (Pantoprazole Inj 40 Mg Vial) 40 mg IVP QDAY IZAIAH Stop: 05/31/25 14:59 Last Admin: 05/01/25 18:37 Dose: 40 mg Documented By: BUDDY Discontinued Medications Bacitracin (Bacitracin Oint 1 Gm Packet) 1 gm TOP X1 ONE Stop: 05/01/25 00:14 Last Admin: 05/01/25 00:36 Dose: 1 gm Documented By: BD Diphtheria/Tetanus/Acell Pertussis (Diphth,Pertuss(Acell),Tet Vac 0.5 Ml Syr- Adult) 0.5 ml IMi .ONCE ONE Stop: 05/01/25 00:14 Last Admin: 05/01/25 00:36 Dose: 0.5 ml Documented By: BD Sodium Chloride (Ns) 1,000 mls @ 999 mls/hr IV .Q1H1M ONE Stop: 05/01/25 01:11 Last Infusion: 05/01/25 01:53 Dose: Infused Documented By: Admin: 05/01/25 00:37 Dose: 999 mls/hr Documented By: BD Cefazolin Sodium/Dextrose (Ancef Ivpb) 1 gm in 50 mls @ 100 mls/hr IV X1 ONE Stop: 05/01/25 00:42 Last Infusion: 05/01/25 01:03 Dose: Infused Documented By: Admin: 05/01/25 00:36 Dose: 100 mls/hr Documented By: BD Sodium Chloride (Ns) 1,000 mls @ 999 mls/hr IV .Q1H1M ONE Stop: 05/01/25 04:17 Last Infusion: 05/01/25 06:02 Dose: Infused Documented By: Admin: 05/01/25 03:57 Dose: 999 mls/hr Documented By: EE Sodium Chloride (Ns) 1,000 mls @ 50 mls/hr IV .Q20H IZAIAH Stop: 05/02/25 21:14 Last Infusion: 05/01/25 18:22 Dose: 0 mls/hr Documented By: Admin: 05/01/25 06:01 Dose: 50 mls/hr Documented By: BD Dextrose (D5w) 1,000 mls @ 50 mls/hr IV .Q20H IZAIAH Stop: 05/31/25 14:29 Sodium Chloride (Ns) 1,000 mls @ 50 mls/hr IV .Q20H ONE Stop: 05/02/25 10:25 Last Admin: 05/01/25 18:22 Dose: Not Given Documented By: BUDDY Non-Admin Reason: Discontinued Morphine Sulfate (Morphine Sulf Inj 4 Mg/Ml Vial) 2 mg IVP X1 ONE Stop: 05/01/25 06:06 Last Admin: 05/01/25 06:13 Dose: 2 mg Documented By: BD Morphine Sulfate (Morphine Sulf Inj 4 Mg/Ml Vial) 1 mg IVP X1 ONE Stop: 05/01/25 08:38 Last Admin: 05/01/25 08:51 Dose: 1 mg Documented By: BUDDY Ondansetron HCl (Ondansetron Inj 2 Mg/Ml Inj 2 Ml) 4 mg IVP X1 ONE; Protocol Stop: 05/01/25 00:12 Last Admin: 05/01/25 00:36 Dose: 4 mg Documented By: SUSANNE From mn, treatment included: IVF Wound care with topical ABX Tdap Ancef 1 g IV Zofran 4 mg IV Consultations Consultation(s) initiated? (list below): Yes Consultation #1 (Physician, Specialty, Details): I discussed the case with our hospitalist. About the presentation and exam and diagnostics and treatments here. And need of further care in the hospital. Will accept the patient. Time: 04:15 Diagnosis Fall Differential Diagnosis: syncope, compression fracture and concussion without loss of consciousness Most likely diagnosis given after review of the tests above:: Head injury Metastases Severe anemia Thrombocytopenia Fall Scalp hematoma Pneumonia Admission Indicated Admission indicated?: indicated Explain why admission is indicated or not indicated:: Head injury Metastases Severe anemia Thrombocytopenia Fall Scalp hematoma Pneumonia Admission Request Was there a request for admission?: Yes Admission Attestation Admission request attestation: Discussed case with Hospitalist service regarding admission. Discussed patients ED course, exam findings, labs, and radiology results. The Hospitalist [agrees] to accept the patient for admission. Disposition Plan Disposition Plan: Admit Discharge Plan Plan Patient Disposition: Admit Acute Care w/in Hospital Problem List Clinical Impression: Head injury, Metastasis, Severe anemia, Thrombocytopenia, Fall, Pneumonia, Scalp hematoma
--- NOTE | 2025-05-01 00:12 | XR_ITS ---
Examination: CT brain head without contrast. 2-D sagittal coronal reconstructions Date and time of exam:May 01, 2025, 0208 hrs. Indications: Patient fell today with injury to the head, head pain, cervical carcinoma diagnosis CTDI: vol (mGy):47.90 DLP: (mGycm):986 Technique: Multiple CT axial sections of the brain have been obtained, 5 mm slice thickness. Contrast has not been administered. 2-D sagittal, coronal reconstructions have been obtained Low dose protocols were performed. One or more of the following dose reduction techniques were used; automated exposure control, adjustment of the mA and/or KV according to patient size, use of iterative reconstruction technique. Findings: No significant ventricular enlargement. Focal areas of edema in the right frontal lobe, axial and age 10 and right cerebellar hemisphere, axial image 32 The right cerebellar hemisphere lesion demonstrates a more hyperdense central nidus 13 mm Soft tissue swelling left frontal scalp Cranial vault intact Intra-axial or extra-axial hemorrhage density is not seen. No mass effect or midline shift Basal cisterns are not remarkable. Fourth ventricle is midline. Cranial vault intact. Impression: Findings most consistent with cerebral metastases, right frontal lobe, right cerebellar hemisphere Recommend brain MRI follow-up, pre and postcontrast
--- NOTE | 2025-05-01 00:12 | XR_ITS ---
Examination: AP chest single view Technique one AP portable upright chest single view Date and time: May 01, 2025, 0051 hrs., Comparison February 17, 2025 Indications: Shortness of breath today. Findings: Pneumonia in the left perihilar left basilar region Right lung clear No significant cardiac enlargement Right internal jugular Port-A-Cath tip SVC satisfactory position. Moderate osteopenia Impression: Left perihilar left basilar pneumonia
--- NOTE | 2025-05-01 00:12 | XR_ITS ---
Examination: CT cervical spine without contrast 2-D sagittal reconstructions 2-D coronal reconstructions 3-D reconstructions. Exam date and time:May 01, 2025, 0212 hrs. Indications: Ground-level fall today with into the neck, neck pain CTDI:vol (mGy) 11.16 DLP: (mGycm) 265 Technique: Multiple 2 mm axial sections of the cervical spine have been obtained. The coronal and sagittal reconstructions have been obtained. 3-D reconstructions have been obtained. Low dose protocols were performed. One or more of the following dose reduction techniques were used; automated exposure control, adjustment of the mA and/or KV according to patient size, use of iterative reconstruction technique. Findings: Axial sections demonstrate intact base of the skull. C1 exhibit satisfactory relationship to the odontoid. No acute cervical vertebral body fracture seen. Alignment posterior spinous processes satisfactory. Impression: No acute cervical fracture. Pathologic left supraclavicular lymphadenopathy
--- NOTE | 2025-05-01 00:12 | XR_ITS ---
Examination: CT chest, without intravenous contrast. CT abdomen, without intravenous contrast. CT pelvis, without intravenous contrast. 2-D sagittal and coronal reconstructions. 3-D reconstructions. Date and time of exam:May 01, 2025, 0213 hrs. Comparison November 04, 2024 Indications: Ground-level fall today with injury to the chest and abdomen, chest pain abdomen pain CTDI vol (mgy) 5.09 DLP (MGycm)374 Technique: Multiple CT images, 3.0 mm slice thickness, obtained chest, abdomen, pelvis, with the high-resolution 64 slice scanner.. Sagittal and coronal 2-D reconstructions are obtained. 3-D reconstructions Low dose protocols were performed. One or more of the following dose reduction techniques were used; automated exposure control, adjustment of the mA and/or KV according to patient size, use of iterative reconstruction technique. Findings: Thoracic aorta pulmonary arteries intact No hemopericardium Left lower lobe 3.5 cm pulmonary mass left lower lobe with significant pneumonia left base 10 mm soft pulmonary nodule posterior right lung 4 mm pulmonary nodule right lower lobe 15 mm pulmonary nodule anterior right lower lobe Multiple abnormal left axillary lymph nodes, the largest 21 mm foci of pneumonia in the right lower lobe Multiple hepatic metastases on this noncontrast study Spleen is not enlarged 29 mm metastatic left adrenal mass Left lateral periaortic lymphadenopathy, the largest lymph node 20 mm No hydronephrosis No pericecal inflammatory change Large rectal tumor mass again depicted, at least 5 x 5.3 cm No thoracic or lumbar compression fracture Sternal segments intact Ribs appear intact 28 mm osteolytic lesion greater trochanter left hip Impression: 3.5 cm pulmonary mass left lower lobe with significant pneumonia left lower lobe and milder pneumonia right lung Metastatic pulmonary nodules Abnormal left axillary lymphadenopathy Hepatic metastases Left adrenal metastatic tumor mass Abdominal lymphadenopathy Large rectal tumor mass, please see the CT PET scan report December 07, 2024 28 mm osteolytic lesion greater trochanter left hip
--- NOTE | 2025-05-01 00:12 | EKG_ITS ---
[facility] Test Date: 2025-05-01 Pat Name: ALYSSA MOLINA Department: Room: - Gender: Female [employer]: : 1955 Requested By: Driss Cardenas Order Number: [id number] Reading MD: Driss Cardenas Measurements Intervals [place] Rate: 95 P: 76 ME: 117 QRS: 89 QRSD: 109 T: 107 QT: 311 QTc: 392 Interpretive Statements SINUS RHYTHM WITH SHORT ME INTERVAL NONSPECIFIC T-WAVE ABNORMALITY Compared to ECG 09/20/2024 18:50:25 Short ME interval now present T-wave abnormality now present Ventricular premature complex(es) no longer present ST (T wave) deviation no longer present /store/S0/[id number]/ecg/[id number].pdf
--- NOTE | 2025-05-01 00:12 | XR_ITS ---
Examination: CT maxillofacial, without intravenous contrast. 2-D sagittal reconstructions. 3-D reconstructions. Date and time of exam:May 01, 2025, 1410 hrs. Indications: Patient fell today with injury to the face, facial pain CTDI: vol (mGy):16.50 DLP: (mGycm):350 Technique: Multiple axial images of maxillofacial region, 3.0 mm slice thickness. 2-D sagittal and coronal reconstructions. 3-D reconstructions. Low dose protocols were performed. One or more of the following dose reduction techniques were used; automated exposure control, adjustment of the mA and/or KV according to patient size, use of iterative reconstruction technique. Findings: Left frontal scalp swelling Frontal bone frontal sinuses intact Orbital rims intact No depression zygomatic arches. No nasal bone fracture. Maxilla and the mandible intact Impression: No acute facial fracture.
[2025-05-01] MEDS: ceFAZolin/D5W 1 GM IVPB 1 GM/50 ML BAG IV (00:36)
[2025-05-01] MEDS: ONDANSETRON INJ 2 MG/ML INJ 2 ML 4 MG IVP (00:36)
[2025-05-01] MEDS: BACITRACIN OINT 1 GM PACKET TOP (00:36)
[2025-05-01] MEDS: DIPHTH,PERTUSS(ACELL),TET VAC 0.5 ML SYR- ADULT IMi (00:36)
[2025-05-01] MEDS: SODIUM CHLORIDE 0.9% 1000 ML 1,000 ML 999 ML IV ×2 (00:37→03:57)
[2025-05-01 01:10] LABS: Beta Hydroxybutyrate 0.2 mmol/L (<0.6); Sed Rate (ESR) 10 mm/hr (0-30)
[2025-05-01 01:12] LABS: Lactate (Lactic Acid) 7.8 mMol/L (0.4-2.0)
[2025-05-01 01:22] LABS: Ammonia 20 uMol/L (11-32)
[2025-05-01 01:24] LABS: INR 3.3 (0.9-1.3); Partial Thromboplastin Time 34.9 Seconds (22.0-36.0)
[2025-05-01 01:28] LABS: Prothrombin Time 31.9 Seconds (9.0-12.2)
--- NOTE | 2025-05-01 01:34 | PC.NURSE ---
pt hard stick per RT shabnam for ABG per dr. lavell hodges to cancel ABG as pt has VBG order
[2025-05-01 01:50] LABS: Alanine Aminotransferase 14 U/L (10-49); Albumin, Serum 3.1 gm/dL (3.4-4.8); Albumin/Globulin Ratio 1.6 (1.2-2.2); Alkaline Phosphatase 175 U/L (46-116); Amylase 434 U/L (30-118); Anion Gap 22 (7-16); Aspartate Amino Transferase 18 U/L (0-34); BUN/Creatinine Ratio 69 Ratio (12-20); Bilirubin,Direct 0.4 mg/dL (0.0-0.3); Bilirubin,Total 0.9 mg/dL (0.3-1.2); Blood Urea Nitrogen 132 mg/dL (9-23); C-Reactive Protein > 10.0 mg/dL (0.0-0.9); Calcium 8.8 mg/dL (8.3-10.6); Calcium (Corrected) 9.5 mg/dL (8.5-10.1); Carbon Dioxide 15.5 mMol/L (20.0-31.0); Chloride 115 mMol/L (98-107); Creatine Kinase 19 U/L (34-171); Creatinine (Component) 1.9 mg/dL (0.6-1.3); Estimated Creatinine Clearance 17.2 mL/min (>60); Globulin 1.9 gm/dL (2.3-3.5); Glucose 318 mg/dL (74-106); Magnesium 2.6 mg/dL (1.6-2.6); Osmolality,Calculated 356 (275-295); Potassium 4.8 mMol/L (3.4-5.1); Procalcitonin 1.91 ng/ml (0.0-0.49); Sodium 152 mMol/L (136-145); Thyroid Stimulating Hormone 1.01 uIU/mL (0.55-4.78); Total Protein 5.0 gm/dL (5.7-8.2); eGFR 28 See Note
[2025-05-01 01:52] LABS: Basophils # (Auto) 0.0 Thou/mm3 (0.0-0.2); Basophils % (Auto) 0 % (0-2.5); Eosinophils # (Auto) 0.0 Thou/mm3 (0.0-0.5); Eosinophils % (Auto) 0 % (0-10); Hematocrit 21.9 % (36.0-46.0); Hemoglobin 7.2 g/dL (12.0-16.0); Immature Granulocytes Auto 0.32 Thou/mm3 (0.00-0.00); Lymphocytes # (Auto) 0.2 Thou/mm3 (1.0-4.8); Lymphocytes % (Auto) 1 % (10-50); Mean Corpuscular HGB Conc 32.9 g/dl (31.0-37.0); Mean Corpuscular Hemoglobin 33.6 pg (25.0-35.0); Mean Corpuscular Volume 102 fL (80-100); Monocytes # (Auto) 0.6 Thou/mm3 (0.0-0.8); Monocytes % (Auto) 3 % (0-12); Neutrophils # (Auto) 20.3 Thou/mm3 (1.8-7.7); Neutrophils % (Auto) 95 % (37-80); Nucleated Red Blood Cell # 0.08 Thou/mm3 (0.00-0.00); Nucleated Red Blood Cell % 0 /100 WBC (0); RDW Standard Deviation 56.5 fL (36.4-46.3); Red Blood Count 2.14 Miln/mm3 (4.00-5.20); White Blood Count 21.3 Thou/mm3 (3.6-11.0)
[2025-05-01 01:53] LABS: Base Excess, Venous -8 (-3-3); O2 Saturation, Venous 75 % (96-97); PCO2, Venous 31 mmHg (36-56); PO2, Venous 43 mmHg (15-58); pH, Venous 7.35 (7.33-7.66)
[2025-05-01 01:54] LABS: Platelet Count < 5 Thou/mm3 (140-440); Troponin I 0.055 ng/mL (0.0-0.045)
[2025-05-01 01:56] LABS: Path Review Blood Smear Sent to Pathologist; Slide Review Platelets confirmed
--- NOTE | 2025-05-01 01:58 | PC.NURSE ---
called ct x3 no answer as pt plt low below 5
[2025-05-01 02:23] LABS: B-Type Natriuretic Peptide 108 pg/mL (0-100)
--- NOTE | 2025-05-01 03:41 | PRELIM_ITS ---
CT scan of the head without intravenous contrast (axial sections with sagittal and coronal reformats) May 01, 2025 0208 hours Clinical history: Fall Findings: There are two isodense lesions in the right frontal lobe and right cerebellum with surrounding edema, the largest measuring 1.7 cm in the right cerebellum(axial images 32/44), which may represent metastases. There is no evidence of intracranial hemorrhage or midline shift. There are mild periventricular white matter hypodensities, likely representing chronic small vessel ischemia. There is mild volume loss. The calvarium is unremarkable. The mastoid air cells and the visualized paranasal sinuses are clear. Large left frontal scalp hematoma is seen. Impression: Two isodense lesions in the right frontal lobe and right cerebellum with surrounding edema, suggestive of metastases. Recommend followup with contrast CT/MRI. No evidence of intracranial hemorrhage or midline shift. Periventricular chronic small vessel ischemia and volume loss. Large left frontal scalp hematoma. Discussion Details: Results verbally communicated to : Dr. Daniel at 03:31 AM 05/01/2025 Report Electronically Signed By: Brain Hall 05/01/2025 3:40:56 AM [EST]
--- NOTE | 2025-05-01 03:41 | PRELIM_ITS ---
CT maxillofacial without intravenous contrast (axial sections with sagittal and coronal reformats). May 01, 2025 0210 hours Clinical History: Trauma Findings: There is no fracture. The maxillary sinus and orbital cordero are intact. No fluid levels are seen. No evidence of intraorbital hematoma, proptosis, globe injury or radiodense foreign body. The zygomatic arches and mandible are intact. Left frontal scalp hematoma is seen. Moderate degenerative changes are identified in the right temporomandibular joint with condylar head deformity. Postoperative changes are seen in both eye globes. Impression: No maxillofacial fracture. Left frontal scalp hematoma. Report Electronically Signed By: Brain Hall 05/01/2025 3:40:30 AM [EST]
--- NOTE | 2025-05-01 03:44 | PRELIM_ITS ---
CT scan of the cervical spine without intravenous contrast (axial sections with sagittal and coronal reformats) May 01, 2025 0212 hours Clinical History: Trauma Findings: There is no fracture or subluxation. Moderate degenerative changes are noted in the form of multilevel marginal osteophytes, decreased disc spaces, uncovertebral and facet arthropathy, most marked at the C5-C6, C6-C7 levels.The prevertebral soft tissues are unremarkable. There are enlarged left supraclavicular lymph nodes, the largest measuring2.5 x 1.8 cm. Impression: No evidence of fracture or subluxation. Moderate degenerative changes. Left supraclavicular metastatic lymphadenopathy. Report Electronically Signed By: Brain Hall 05/01/2025 3:43:53 AM [EST]
--- NOTE | 2025-05-01 03:53 | PRELIM_ITS ---
CT scan of the chest, abdomen and pelvis without intravenous contrast (axial sections with sagittal and coronal reformats) May 01, 2025 0213 hours Clinical History: Fall Compared with the prior MRI Abdomen study dated 03/25/2024 Findings: Port-a-cath is seen in place. There is mucus plugging is seen in the left lower lobe bronchi.A 1.2 cm enlarged left axillary lymph node is seen. The thoracic aorta demonstrates atheromatous calcification without evidence of aneurysm..Coronary artery calcification is noted.There is a 2.7 x 3.4 x2.4 cm superior left lower lobe mass with adjacent ground-glass opacities. Ground glass opacities are also seen in the lingula. Basilar streaky opacities are seen. Small subpleural consolidation is seen in the right middle lobe. Focal ground-glass opacities are seen in the right lower lobe. Emphysematous changes are noted in the lungs.There is no pleural effusion or pneumothorax.There is thickening versus underdistention of the esophagus.There is no mediastinal collection. There is no pericardial effusion. There are multiple liver lesions, the largest measuring 6 cm in the left lobe, likely representing metastases. Multiple calculi are noted within the gallbladder, without evidence of gallbladder wall thickening or pericholecystic fluid.A wedge shaped hypodensity in the spleen, suspicious for infarct, likely old. Indeterminate small hypodense lesions are also seen in the spleen. There is a 1cm right adrenal nodule. A 2.8 x 2.9cm left adrenal mass is seen. The pancreas is unremarkable on this noncontrast study. Bilateral renal cysts are seen. No evidence of bowel obstruction. Marked anorectal wall thickening is seen with adjacent fat stranding. The urinary bladder is unremarkable. There is no free fluid or free air. Multiple retroperitoneal lymph nodes are seen, measuring up to 1.8cm. The abdominal aorta demonstrates atheromatous calcification without evidence of aneurysm. No fracture is identified. Moderate degenerative changes are identified in the spine. Impression: No evidence of acute fracture. Left lower lobe mass suggestive of metastatic/primary neoplastic etiology with postobstructive pneumonitis in the left lower lobe. Mucus plugging in the left lower lobe bronchi. Ground-glass opacities in the lingula, right lower lobe, small consolidation in the right middle lobe, possibly of infectious etiology. Recommend clinical correlation. Marked anorectal wall thickening suggestive of neoplastic process. Left axillary and retroperitoneal lymphadenopathy likely of metastatic etiology. Findings consistent with multiple liver and left adrenal metastasis. Cholelithiasis. Other findings as described above. Report Electronically Signed By: Brain Hall 05/01/2025 3:52:29 AM [EST]
[2025-05-01 03:57] LABS: Reflex Lactate? Y
[2025-05-01 04:19] LABS: Collection Type, Urine Clean Catch
[2025-05-01 04:26] LABS: Amorphous Crystals,Urine Present (Absent); Bilirubin,Urine Negative (Negative); Blood,Urine Negative (Negative); Clarity,Urine Turbid (Clear/Hazy); Color,Urine Yellow (Lt Yel-Yel); Culture Indicated,Urine Not Indicated; Glucose, Urine Negative (Negative); Granular Casts,Urine < 1 /hpf (0-1); Hyaline Casts,Urine < 1 /hpf (0-1); Ketones,Urine Negative (Negative); Leukocyte Esterase,Urine Negative (Negative); Nitrite,Urine Negative (Negative); PH,Urine 5.0 (5.0-7.0); Protein,Urine Trace (Neg - Trace); RBC,Urine 3 /hpf (0-3); Specific Gravity,Urine 1.021 (1.001-1.035); Squamous Epithelial Cell,Urine 1 /hpf (0-5); Urobilinogen,Urine 2.0 mg/dL (0.0-1.0); WBC,Urine 3 /hpf (0-5)
[2025-05-01 04:30] LABS: Lactic Acid, 3 HR 5.4 mMol/L (0.4-2.0)
[2025-05-01 05:08] LABS: Troponin I 0.049 ng/mL (0.0-0.045)
--- NOTE | 2025-05-01 05:10 | ESHP_ITS ---
<Statement entered by Joel Madden MD - 05/01/25 07:20> 70-year-old female with past medical history of uterine and breast cancer s/p radiation therapy, but has metastasized all throughout her body was admitted to hospital on 05/01/2025 for failure to thrive and thrombocytopenia. Patient is daughter was at bedside who is her medical power of reference test clerk and stated the patient had a fall today while in the bathroom. Patient is currently on Eliquis, initial head CT did not show any intracranial hemorrhage. Given extensive metastasis spoke with patient's daughter at bedside who stated that the family at this time had decided to pursue DNR status at this time. Patient's power of reference test clerk also stated that he did not wish any aggressive treatment, but would like to get platelets and IV fluids for now, patient was groaning in pain and well after initial assessment and given her poor prognosis discussed again with patient power of reference test clerk and other son about the possibility of patient deteriorating in the next couple of hours and they were understanding, they decided that this time they would like to pursue hospice and see if she in fact deteriorates at which time they will make the decision they would like to proceed with comfort care. Currently patient is getting IV fluids for FRANKY and plasmapheresis for thrombocytopenia. I have personally examined the patient. Note was reviewed and agree with the care plan as documented please refer to the note below for further details. Case disclosed with attending Dr. Stanley Madden, PGY 2 Documentation for date of: 05/01/25 HPI History of Present Illness History of present illness: Patient is a 70-year-old female with history of uterine, breast s/p radiation therapy brain cancer metastatic disease, hypertension present to [facility] on 04/30/2025 with chief complaint of s/p fall hematoma. Per daughter bedside this patient fell last night facing forward when she was standing from the commode. Patient have a prominent left-frontal hematoma. Patient does not talk and most of the history was obtained from the daughter. Per patient for the last few months patient has been deteriorating clinically, needing assistance with moving from bed to chair and vice versa. Patient also has poor oral intake, for which she has lost significant weight.patient did not talk or interact as before. She is awake but she is not alert oriented. Additionally patient daughter also noticed that shortness spotting when she wipes, blood per rectum. Family is concerned that the patient quality of life is poor and considering possibly comfort care for the patient. Patient follow-up with oncology Dr. Rick Daniel. ED Course: -Initial vitals were BP 89/57, pulse 90, RR 20, temp 99.6, O2 sat 98% on room air. -Labs significant for WBC 21.3, hemoglobin 7.2, hematocrit 21.9, MCV 102, platelet count less than 5,PT 31.9, INR 3.3, sodium 132, chloride 115, bicarb 15, anion gap 22, 0.132, creatinine 1.9, eGFR 20, glucose 118, lactic acidosis 7.8, creatinine kinase 19, troponin 0.0 55, C-reactive > 10, Pro-Armando 1.91 -Imaging included for CT showed left frontal scalp hematoma, CT head shows isodense lesions in the right frontal lobe and right cerebellum with surrounding edema, suggestive of metastases.CT cervix shows left supraclavicular metastatic lymphadenopathy. CT abd/pelvis/abdleft lower lobe mass suggestive of metastatic/primary neoplastic etiology with postobstructive pneumonitis in the left lower lobe. Marked anorectal wall thickening suggestive of neoplastic process.Left axillary and retroperitoneal lymphadenopathy likely of metastatic etiology.Findings consistent with multiple liver and left adrenal metastasis.Cholelithiasis. -Patient was admitted for failure to thrive and, thrombocytopenia management Review of Systems Review of systems otherwise negative except what is mentioned above. Past Medical History: Mentioned above plus DVT Family History: Noncontributory Surgical History: Hernia repair, pancreatic tumor removal 2021 benign. Social History: Denies history of smoking, denies current alcohol use, denies recreational drug use Current Medications: Allergies: No known drug allergies Exam Vital Signs Temp Pulse Resp BP Pulse Ox O2 Del Method 98.2 F 81 19 114/69 98 Room Air 05/01/25 04:00 05/01/25 04:00 05/01/25 04:00 05/01/25 04:00 05/01/25 04:00 05/01/25 04:00 Constitutional Constitutional: thin, cachectic and chronically ill appearing Routine HEENT Exam Head: Present hematoma (Left frontal) ENT: Present mucous membranes dry and nares patent Routine Chest/Breast/Axilla Exam Breast: Present rashes and scars Routine Respiratory Exam Respiratory: Present chest non-tender, lungs clear and distant breath sounds Routine Cardiovascular Exam Cardiovascular: Present RRR, S1 and S2 Routine Abdominal Exam Abdominal: Present soft and normoactive bowel sounds Routine Extremities Exam Extremities: Present pulses intact and normal capillary refill Routine Skin Exam Skin: Present intact, dry and wounds Results: Labs 05/01/25 21:38 05/01/25 16:40 Labs: Short CBC 05/01/25 Range/Units 00:47 WBC 21.3 H (3.6-11.0) Thou/mm3 Hgb 7.2 L (12.0-16.0) g/dL Hct 21.9 L* (36.0-46.0) % Plt Count < 5 L* (140-440) Thou/mm3 BMP 05/01/25 00:47 Sodium 152 H Potassium 4.8 Chloride 115 H Carbon Dioxide 15.5 L BUN 132 H* Creatinine 1.9 H Glucose 318 H Calcium 8.8 Cardiac Enzymes 05/01/25 05/01/25 Range/Units 00:47 04:16 Total Creatine Kinase 19 L (34-171) U/L Troponin I 0.055 H* 0.049 H* (0.0-0.045) ng/mL Liver Function 05/01/25 Range/Units 00:47 Total Bilirubin 0.9 (0.3-1.2) mg/dL Direct Bilirubin 0.4 H (0.0-0.3) mg/dL AST 18 (0-34) U/L ALT 14 (10-49) U/L Alkaline Phosphatase 175 H (46-116) U/L Albumin 3.1 L (3.4-4.8) gm/dL Urine 05/01/25 Range/Units 04:10 Urine Color Yellow (Lt Yel-Yel) Urine Clarity Turbid A (Clear/Hazy) Urine pH 5.0 (5.0-7.0) Ur Specific [place] 1.021 (1.001-1.035) Urine Protein Trace (Neg - Trace) Urine Glucose (UA) Negative (Negative) ABG Interpretation ABG results: 05/01/25 01:43 VBG pH 7.35 VBG pCO2 31 L VBG pO2 43 VBG Base Excess -8 L Quality Measures Quality Measures none (Fall with severe thrombocytopenia) Advance care planning discussed with:: child (daugther ) Medications Home Medications and Allergies Home Medications ?Medication ?Instructions ?Recorded ?Confirmed ?Type amlodipine 5 mg tablet 10 mg PO QDAY 07/17/2103/23 History hydrochlorothiazide 25 mg tablet 25 mg PO QDAY 1 03/23/24 History Allergies Allergy/AdvReac Type Severity Reaction Status Date / Time No Known Allergies Allergy Verified 04/30/25 23:59 Visit Medications Sodium Chloride (Ns) 1,000 mls @ 50 mls/hr IV .Q20H IZAIAH Stop: 05/02/25 21:14 Discontinued Medications Bacitracin (Bacitracin Oint 1 Gm Packet) 1 gm TOP X1 ONE Stop: 05/01/25 00:14 Last Admin: 05/01/25 00:36 Dose: 1 gm Diphtheria/Tetanus/Acell Pertussis (Diphth,Pertuss(Acell),Tet Vac 0.5 Ml Syr- Adult) 0.5 ml IMi .ONCE ONE Stop: 05/01/25 00:14 Last Admin: 05/01/25 00:36 Dose: 0.5 ml Sodium Chloride (Ns) 1,000 mls @ 999 mls/hr IV .Q1H1M ONE Stop: 05/01/25 01:11 Last Infusion: 05/01/25 01:53 Dose: Infused Cefazolin Sodium/Dextrose (Ancef Ivpb) 1 gm in 50 mls @ 100 mls/hr IV X1 ONE Stop: 05/01/25 00:42 Last Infusion: 05/01/25 01:03 Dose: Infused Sodium Chloride (Ns) 1,000 mls @ 999 mls/hr IV .Q1H1M ONE Stop: 05/01/25 04:17 Last Admin: 05/01/25 03:57 Dose: 999 mls/hr Ondansetron HCl (Ondansetron Inj 2 Mg/Ml Inj 2 Ml) 4 mg IVP X1 ONE; Protocol Stop: 05/01/25 00:12 Last Admin: 05/01/25 00:36 Dose: 4 mg Assessment & Plan Plan Patient is a 70-year-old female with history of uterine, breast s/p radiation therapy brain cancer metastatic disease, hypertension present to [facility] on 04/30/2025 with chief complaint of s/p fall hematoma. Admitted for failure to thrive and thrombocytopenia management Patient's daughter who has power of reference test clerk present by bedside stated that she did not want any aggressive treatment, but would like to get platelets and IV fluids for now. Given patient's poor prognosis discussion again with patient's daughter who had already discussed patient's condition with other family members about the possibility of patient deteriorating in the next couple of hours and they were understanding, they decided that this time they would like to pursue hospice and see if she in fact deteriorates at which time they will make the decision they would like to proceed with comfort care. Currently patient is getting IV fluids for FRANKY and AGMA for thrombocytopenia. Social referral for hospice arrangement placed. #Fall likely 2/2 mechanical in setting of extreme weakness #Failure to thrive #Thrombocyopenia The patient appears cachectic on physical examination. She is awake but not alert or oriented. She is nonverbal, minimally interactive, and unable to ambulate or move her extremities, consistent with her baseline functional status.An extensive discussion was held with the patient's family regarding her current condition and overall poor prognosis. The family is considering transitioning to hospice care, given concerns about the patient?s quality of life. Received cefazolin IV and Zofran, in the ED. Platelets less than 5. - IV normal saline at 50mls/hr - Plasmapheresis,pending - PRBC ordered -Type and screen - Morphine 1 mg IVP as needed - Social work referral - Hospice referral #Breast cancer # Uterine cancer # Metastasis to brain, lungs, extensive lymphadenopathy, left adrenal, liver #Leukocytosis #Normocytic anemia, chronic #Hyponatremia #Anion gap metabolic acidosis #Acute kidney injury #Lactic acidosis #NSTEMI Hospital management: Lines: peripheral IV Diet: NPO Disposition: tele, FRANKY, AGMA, Thrombocytopenia, Fall, hospice care arrangement CODE STATUS: DNR Patient seen and assessed under supervision of attending physician and discuss with senior resident Dr. Lee PGY-2 Chantel Villatoro MD PGY-1, Internal Medicine Please note: this document was transcribed using voice recognition technology; minor inaccuracies may be present. Attending Provider Attestation/Addendum After examination of the patient and review of the clinical data I feel that this patient needs admission to the hospital for further treatment/evaluation. Plan of care discussed with patient and is in agreement. I Lelia Angel MD, attest that I was physically present for hyatt portions of evaluation, and examined patient, labs and imagings and plan of care were discussed with IM residents team, and I agree with the findings and plans documented above.
--- NOTE | 2025-05-01 05:54 | PC.NURSE ---
called dr. low pt needing pain relief will provided pain medication
[2025-05-01] MEDS: SODIUM CHLORIDE 0.9% 1000 ML 1,000 ML 50 ML IV (06:01)
[2025-05-01] MEDS: MORPHINE SULF INJ 4 MG/ML VIAL 2 MG IVP (06:13)
[2025-05-01] MEDS: MORPHINE SULF INJ 4 MG/ML VIAL 1 MG IVP ×3 (08:51→20:43)
[2025-05-01] MEDS: levETIRAcetam INJ 100 MG/ML VIAL 5ML 500 MG IVP ×2 (08:51→20:37)
[2025-05-01] MEDS: DEXAMETHASONE SOD PHOS INJ 10 MG/ML VIAL 8 MG IVP ×2 (08:51→20:37)
--- NOTE | 2025-05-01 13:55 | PD.RESPRO ---
Documentation for date of: 05/01/25 Subjective Subjective Interval history: Patient is admitted overnight in view of fall, severe thrombocytopenia, acute kidney injury Patient is seen and examined at bedside in the ED. She is able to answer some questions but is extremely lethargic and confused Labs are reviewed. Goals of care discussion done with the family including son, daughter who is the power of mergers and acquisitions attorney and the and agreed on hospice in view of her severe metastatic disease. Hospice referral was done. Discussed with the social sciences lecturer and requested them to give resources to the patient's family Exam Vital Signs Temp Pulse Resp BP Pulse Ox O2 Del Method 97.0 F 80 23 H 133/61 H 90 L Room Air 05/01/25 13:47 05/01/25 13:47 05/01/25 13:47 05/01/25 13:47 05/01/25 13:47 05/01/25 12:00 Narrative Exam General: Drowsy. Emaciated. HEENT: Normocephalic, noted hematoma on left forehead, mucous membranes moist. noted chemoport Heart: Regular rate and rhythm, no murmurs. Lungs: Clear to auscultation with no wheezing or crackles. Abdomen: Soft, nondistended, nontender, positive bowel sounds. ?No guarding or rebound tenderness. Neurologic: No gross neurological deficit, and patient able to move all 4 extremities. Extremities: No edema. Skin: No rash or ecchymoses. Objective Labs 05/01/25 21:38 05/01/25 16:40 Labs: Laboratory Results - last 24 hr 05/01/25 05/01/25 05/01/25 00:47 01:43 04:10 WBC 21.3 H RBC 2.14 L Hgb 7.2 L Hct 21.9 L* MCV 102 H MCH 33.6 MCHC 32.9 RDW Std Deviation 56.5 H Plt Count < 5 L* Neut % (Auto) 95 H Lymph % (Auto) 1 L Ralls % (Auto) 3 Eos % (Auto) 0 Baso % (Auto) 0 Neut # (Auto) 20.3 H Lymph # (Auto) 0.2 L Ralls # (Auto) 0.6 Eos # (Auto) 0.0 Baso # (Auto) 0.0 Immature Gran # (Auto) 0.32 H Absolute Nucleated RBC 0.08 H Immature Gran % 2 H Nucleated RBC % 0 Smear Path Review Sent to Pathologist ESR 10 PT 31.9 H* INR 3.3 H APTT 34.9 VBG pH 7.35 VBG pCO2 31 L VBG pO2 43 VBG O2 Sat (Sophia) 75 L VBG Base Excess -8 L Sodium 152 H Potassium 4.8 Chloride 115 H Carbon Dioxide 15.5 L Anion Gap 22 H BUN 132 H* Creatinine 1.9 H Estim Creat Clear Calc 17.2 L eGFR 28 L BUN/Creatinine Ratio 69 H Glucose 318 H Calculated Osmolality 356 H Lactic Acid 7.8 H* Calcium 8.8 Corrected Calcium 9.5 Magnesium 2.6 Total Bilirubin 0.9 Direct Bilirubin 0.4 H AST 18 ALT 14 Alkaline Phosphatase 175 H Ammonia 20 Total Creatine Kinase 19 L Troponin I 0.055 H* C-Reactive Prot, Quant > 10.0 H B-Natriuretic Peptide 108 H Total Protein 5.0 L Albumin 3.1 L Globulin 1.9 L Albumin/Globulin Ratio 1.6 Amylase 434 H Beta-Hydroxybutyrate/Acetoacetate 0.2 Procalcitonin 1.91 H TSH 1.01 Ur Collection Type Clean Catch Urine Color Yellow Urine Clarity Turbid A Urine pH 5.0 Ur Specific Kerrick 1.021 Urine Protein Trace Urine Glucose (UA) Negative Urine Ketones Negative Urine Blood Negative Urine Nitrite Negative Urine Bilirubin Negative Urine Urobilinogen (Auto) 2.0 Ur Leukocyte Esterase Negative Urine RBC 3 Urine WBC 3 Ur Squamous Epith Cells 1 Amorphous Crystals Present A Urine Bacteria None Hyaline Casts < 1 Granular Casts < 1 Ur Culture Indicated? Not Indicated Misc Test Result Platelets confirmed Blood Type O Positive Antibody Screen NEGATIVE Blood Bank Wristband ID Yes Blood Bank Comment PLATP Ready 05/01/25 04:16 WBC RBC Hgb Hct MCV MCH MCHC RDW Std Deviation Plt Count Neut % (Auto) Lymph % (Auto) Ralls % (Auto) Eos % (Auto) Baso % (Auto) Neut # (Auto) Lymph # (Auto) Ralls # (Auto) Eos # (Auto) Baso # (Auto) Immature Gran # (Auto) Absolute Nucleated RBC Immature Gran % Nucleated RBC % Smear Path Review ESR PT INR APTT VBG pH VBG pCO2 VBG pO2 VBG O2 Sat (Sophia) VBG Base Excess Sodium Potassium Chloride Carbon Dioxide Anion Gap BUN Creatinine Estim Creat Clear Calc eGFR BUN/Creatinine Ratio Glucose Calculated Osmolality Lactic Acid 5.4 H* Calcium Corrected Calcium Magnesium Total Bilirubin Direct Bilirubin AST ALT Alkaline Phosphatase Ammonia Total Creatine Kinase Troponin I 0.049 H* C-Reactive Prot, Quant B-Natriuretic Peptide Total Protein Albumin Globulin Albumin/Globulin Ratio Amylase Beta-Hydroxybutyrate/Acetoacetate Procalcitonin TSH Ur Collection Type Urine Color Urine Clarity Urine pH Ur Specific Kerrick Urine Protein Urine Glucose (UA) Urine Ketones Urine Blood Urine Nitrite Urine Bilirubin Urine Urobilinogen (Auto) Ur Leukocyte Esterase Urine RBC Urine WBC Ur Squamous Epith Cells Amorphous Crystals Urine Bacteria Hyaline Casts Granular Casts Ur Culture Indicated? Misc Test Result Blood Type Antibody Screen Blood Bank Wristband ID Blood Bank Comment ABG Interpretation ABG results: 05/01/25 01:43 VBG pH 7.35 VBG pCO2 31 L VBG pO2 43 VBG Base Excess -8 L Quality Measures Quality Measures none Advance care planning discussed with:: spouse, child and legal surragate Assessment & Plan Assessment Current Active Medications: Generic Name Dose Route Start Last Admin Trade Name Freq PRN Reason Stop Dose Admin Dexamethasone Sodium Phosphate 8 mg 05/01/25 09:00 05/01/25 08:51 Dexamethasone Sod Phos Inj 10 Mg/Ml Vial IVP 05/31/25 08:59 8 mg BID IZAIAH Administration Sodium Chloride 1,000 mls @ 50 mls/hr 05/01/25 05:15 05/01/25 06:01 Ns IV 05/02/25 21:14 50 mls/hr .Q20H IZAIAH Administration Levetiracetam 500 mg 05/01/25 09:00 05/01/25 08:51 Levetiracetam Inj 100 Mg/Ml Vial 5ml IVP 05/31/25 08:59 500 mg Q12HR IZAIAH Administration Morphine Sulfate 1 mg 05/01/25 06:10 Morphine Sulf Inj 4 Mg/Ml Vial IVP 05/06/25 06:09 Q4HR PRN PAIN SCALE 4-10(Mod-Sev Plan # Fall # Likely 2/2 mechanical in the setting of extreme weakness # 2/2 Hypernatremia # due to Severe dehydration - Family at the bedside reported that since 1 week patient is noted to have poor oral intake and noted to have severe weight loss of 17 pounds in 1 week - And patient is bedridden since last month due to extreme weakness - Patient is made to sit on the commode at the bedside and left her to grab something and by the time he came back he noticed that she is lying on the ground and noted to have trauma on her head for which she was brought to the ED. - Denies nausea, vomiting, seizure-like activity, fever - Head CT showed scalp hematoma, right frontal lobe metastasis, right cerebellar hemisphere metastasis. - Face CT did not show any acute fracture - Cervical spine CT did not show any fracture except for pathologic left supraclavicular lymphadenopathy - Vitals at the time of admission are significant for blood pressure 89/57 mmHg -Labs at the time of admission are significant for sodium 152 - In the ED, patient received 2 L of fluid and started on maintenance fluid Plan - Will continue maintenance fluids - Fall precautions - Sodium checks - Will continue to monitor vitals # Thrombocytopenia Likely secondary to bone marrow suppression-malignancy versus chemotherapy/radiation induced - Platelet count at the time of admission is less than 5 - Last chemotherapy session is on April 18 and radiation session is on February 15 - Also noted to have hemoglobin of 7.2 at the time of admission, baseline hemoglobin is around 10 on 12/2024 - Except scalp hematoma no other active bleeding manifestations noted Plan - 1 unit of platelet transfusion is done - Will continue to watch for bleeding manifestations - Will repeat CBC after the platelet transfusion - Eliquis is stopped which was started for the treatment of DVT # Hypernatremia # Hyperchloremia - Likely due to severe dehydration from poor oral intake - Patient was given 2 L of fluid boluses in the ED and was started on maintenance fluids Plan - Will continue to monitor sodium - Will add D5W if the sodium is not improving # FRANKY # High anion gap metabolic acidosis # Lactic acidosis Baseline creatinine is 0.9 on 01/07/2025 - Likely due to severe dehydration from poor oral intake - At the time of admission, BUN is 132, creatinine is 1.9, bicarb 15.5, anion gap 22, lactate 7.8 Plan - Received fluid boluses and started on IV fluids - Will continue to monitor renal panel and lactate levels and give fluids accordingly # Coagulopathy - INR is 3.3 at the time of admission - Except scalp hematoma no other bleeding manifestations are noted - Patient is noted to have metastasis to the liver which could be causing altered liver function - Rest of the liver functions are within normal limits except for mildly elevated ALP, 175 Plan - Goals of care discussion done with the family and they want to proceed with the hospice and does not want any further invasive treatments, so FFP transfusion will be held for now # Leukocytosis - WBC at the time of admission is 21.3 - Patient is using dexamethasone 8 mg oral twice daily at home in view of cerebral mets - This could be the cause of elevated WBC Plan - Will not give any antibiotics for now as there is no active source of infection and family does not want any aggressive treatment to prolong the life of the patient - Resumed steroids # Anemia - Hemoglobin at the time of admission is 7.2, baseline hemoglobin is 10 on 12/2024 - Patient had history of multiple blood transfusions Plan - Will continue to monitor CBC - Will hold PRBC transfusion for now as the patient family does not want any invasive treatment on patient # Breast cancer # Uterine cancer # Metastasis to brain, lungs, extensive lymphadenopathy, left adrenal, liver - Patient is currently on radiation and chemotherapy - Noted to lose 17 pounds in the last 1 month and based on patient's clinical assessment, might not tolerate any more chemo or radiation therapy Plan - Family wants to proceed with hospice, daughter who is the power of mergers and acquisitions attorney agrees with the plan - Referral to hospice was done Hospital Maintenance: Dispo: Tele DVT ppx: SCD GI ppx: protonix Diet: NPO IV lines: Peripheral Code status: Full Patient plan of care was discussed with the attending physician, Dr. Isidoro Mclaughlin, PGY2 Attending Provider Attestation/Addendum I have examined the patient, reviewed labs and imaging findings, discussed the case with the resident(s), and reviewed entered orders. I agree with the plan of care as outlined in this note, with these additional summaries/recommendations: Patient and patient's family seen at bedside. Patient has a known history of metastatic breast cancer to uterus and brain. Family reports patient had appointment with oncologist approximately 1 month ago when they were told about brain mets. Plan with oncologist was to perform palliative radiation to brain mets and continue Decadron. Since that appointment patient has had drastic functional decline in mobility and oral intake. She is now diagnosis failure to thrive and had a ground-level fall. Imaging on admission now shows 3.5 cm pulmonary mass in the left lower lobe, metastatic pulmonary nodules, abnormal left axillary lymphadenopathy, hepatic metastasis, left adrenal metastatic tumor mass, abdominal lymphadenopathy, large rectal mass, and 28 mm osteolytic lesion greater trochanter left hip. Goals of care was held with patient's family and medical decision maker today. All patient's medical conditions, treatment options, and prognosis were discussed at length. After reviewing all available data, family has decided to proceed with hospice care which is appropriate. We will respect family wishes. Discussed current treatment options with family and they are in agreement to give dextrose containing fluids since patient has had little to no oral intake. Given the risk of life-threatening bleed from thrombocytopenia they also would like to proceed with platelets. No FFP needed at this time. Hospice referral made. Okay to continue Decadron for brain mets. Continue Keppra. Pain management with morphine as needed. Family updated on the plan and in agreement. All questions answered to satisfaction. Please see residents note for additional details and management. Dr. Isidoro MD
--- NOTE | 2025-05-01 15:34 | PC.SS ---
Addendum entered by Nai Merchant 05/01/25 17:02: Hospice referral submitted via Rene to preferred agency, [facility]. Original Note: 70YO female, reason for visit: FAILURE TO THRIVE/THROMBOCYTOPENIA YANDEL met with patient and her daughter Aimee Street at bedside. Role and purpose of today?s contact was explained. Patient is Ghanaian speaking. Patient?s daughter confirmed patient?s demographic information. Aimee explained patient resides with her. Aimee stated she is patient?s primary medical surrogate decisionmaker and can be reached at [phone]. Patient requires maximum assistance with ADL completion. Patient is bedbound and transferred with wheelchair. Pharmacy: [facility]. PCP: John Dempsey ? Last appt. was March 2025 via telehealth. Discharge plan was discussed with patient?s daughter. She stated hospitalist team has recommended Hospice and would like additional information. Community Resource Document with Hospice agencies and brochures provided at bedside to Aimee by YANDEL Barton. Aimee has selected [facility] hospice. Patient?s daughter Aimee, is requesting financial assistance with gurney transportation to transport patient home. Next of kin: Daughter Aimee Street [phone] Discharge plan: Home, gurney transportation needed. ?
--- NOTE | 2025-05-01 16:00 | PC.NURSE ---
PT family with medication list but with no dosage, time, or route. I explained that we would need that information to input into our system. Tavon (son) states Madiha will bring list when she comes by. Med list: Eliquis Dexamethasone Keppra Mirtazipine
[2025-05-01 17:01] LABS: Lactate (Lactic Acid) 4.7 mMol/L (0.4-2.0)
[2025-05-01 17:46] LABS: Alanine Aminotransferase 14 U/L (10-49); Albumin, Serum 3.2 gm/dL (3.4-4.8); Albumin/Globulin Ratio 1.3 (1.2-2.2); Alkaline Phosphatase 160 U/L (46-116); Anion Gap 15 (7-16); Aspartate Amino Transferase 43 U/L (0-34); BUN/Creatinine Ratio 69 Ratio (12-20); Bilirubin,Total 0.8 mg/dL (0.3-1.2); Blood Urea Nitrogen 124 mg/dL (9-23); Calcium 8.9 mg/dL (8.3-10.6); Calcium (Corrected) 9.5 mg/dL (8.5-10.1); Carbon Dioxide 19.7 mMol/L (20.0-31.0); Chloride 119 mMol/L (98-107); Creatinine (Component) 1.8 mg/dL (0.6-1.3); Estimated Creatinine Clearance 18.2 mL/min (>60); Globulin 2.4 gm/dL (2.3-3.5); Glucose 157 mg/dL (74-106); Osmolality,Calculated 348 (275-295); Potassium 4.1 mMol/L (3.4-5.1); Sodium 154 mMol/L (136-145); Total Protein 5.6 gm/dL (5.7-8.2); eGFR 30 See Note
[2025-05-01] MEDS: DEXTROSE 5%-WATER 1,000 ML 50 ML IV (18:37)
[2025-05-01 19:57] LABS: Reflex Lactate? Y
[2025-05-01 20:54] LABS: Lactic Acid, 3 HR 2.1 mMol/L (0.4-2.0)
[2025-05-01 20:55] LABS: Basophils # (Auto) 0.0 Thou/mm3 (0.0-0.2); Basophils % (Auto) 0 % (0-2.5); Eosinophils # (Auto) 0.0 Thou/mm3 (0.0-0.5); Eosinophils % (Auto) 0 % (0-10); Immature Granulocytes Auto 0.15 Thou/mm3 (0.00-0.00); Lymphocytes # (Auto) 0.2 Thou/mm3 (1.0-4.8); Lymphocytes % (Auto) 1 % (10-50); Mean Corpuscular HGB Conc 32.2 g/dl (31.0-37.0); Mean Corpuscular Hemoglobin 33.1 pg (25.0-35.0); Mean Corpuscular Volume 103 fL (80-100); Monocytes # (Auto) 0.5 Thou/mm3 (0.0-0.8); Monocytes % (Auto) 3 % (0-12); Neutrophils # (Auto) 15.5 Thou/mm3 (1.8-7.7); Neutrophils % (Auto) 95 % (37-80); Nucleated Red Blood Cell # 0.10 Thou/mm3 (0.00-0.00); Nucleated Red Blood Cell % 1 /100 WBC (0); RDW Standard Deviation 58.0 fL (36.4-46.3); Red Blood Count 1.45 Miln/mm3 (4.00-5.20); White Blood Count 16.3 Thou/mm3 (3.6-11.0)
[2025-05-01 21:00] LABS: Hematocrit 14.9 % (36.0-46.0); Hemoglobin 4.8 g/dL (12.0-16.0); Platelet Count 71 Thou/mm3 (140-440)
[2025-05-01 21:58] LABS: Hemoglobin 5.7 g/dL (12.0-16.0)
[2025-05-01 21:59] LABS: Hematocrit 17.4 % (36.0-46.0)
[2025-05-01 22:08] LABS: Slide Review Platelets confirmed
[2025-05-01 22:09] LABS: Path Review Blood Smear Sent to Pathologist
[2025-05-02] VITALS (14 sets, daily range): BP systolic 108–153; BP diastolic 41–68; PULSE 68–93; RESP 11–18; TEMP 35.8–36.4; O2SAT 96–100; BMI 17.6
[2025-05-02] MEDS: MORPHINE SULF INJ 4 MG/ML VIAL 1 MG IVP ×4 (02:00→23:42)
[2025-05-02 07:29] LABS: Lactate (Lactic Acid) 2.9 mMol/L (0.4-2.0)
[2025-05-02 07:39] LABS: Basophils # (Auto) 0.0 Thou/mm3 (0.0-0.2); Basophils % (Auto) 0 % (0-2.5); Eosinophils # (Auto) 0.0 Thou/mm3 (0.0-0.5); Eosinophils % (Auto) 0 % (0-10); Hematocrit 26.9 % (36.0-46.0); Hemoglobin 9.1 g/dL (12.0-16.0); Immature Granulocytes Auto 0.20 Thou/mm3 (0.00-0.00); Lymphocytes # (Auto) 0.1 Thou/mm3 (1.0-4.8); Lymphocytes % (Auto) 1 % (10-50); Mean Corpuscular HGB Conc 33.8 g/dl (31.0-37.0); Mean Corpuscular Hemoglobin 31.2 pg (25.0-35.0); Mean Corpuscular Volume 92 fL (80-100); Monocytes # (Auto) 0.5 Thou/mm3 (0.0-0.8); Monocytes % (Auto) 3 % (0-12); Neutrophils # (Auto) 17.6 Thou/mm3 (1.8-7.7); Neutrophils % (Auto) 95 % (37-80); Nucleated Red Blood Cell # 0.19 Thou/mm3 (0.00-0.00); Nucleated Red Blood Cell % 1 /100 WBC (0); RDW Standard Deviation 57.4 fL (36.4-46.3); Red Blood Count 2.92 Miln/mm3 (4.00-5.20); White Blood Count 18.4 Thou/mm3 (3.6-11.0)
[2025-05-02 07:43] LABS: Platelet Count 21 Thou/mm3 (140-440)
[2025-05-02 08:17] LABS: Slide Review Platelets confirmed
[2025-05-02 08:20] LABS: Alanine Aminotransferase 13 U/L (10-49); Albumin, Serum 2.8 gm/dL (3.4-4.8); Albumin/Globulin Ratio 1.2 (1.2-2.2); Alkaline Phosphatase 220 U/L (46-116); Anion Gap 14 (7-16); Aspartate Amino Transferase 51 U/L (0-34); BUN/Creatinine Ratio 65 Ratio (12-20); Bilirubin,Total 1.1 mg/dL (0.3-1.2); Blood Urea Nitrogen 111 mg/dL (9-23); Calcium 8.6 mg/dL (8.3-10.6); Calcium (Corrected) 9.6 mg/dL (8.5-10.1); Carbon Dioxide 20.7 mMol/L (20.0-31.0); Chloride 117 mMol/L (98-107); Creatinine (Component) 1.7 mg/dL (0.6-1.3); Estimated Creatinine Clearance 19.3 mL/min (>60); Globulin 2.4 gm/dL (2.3-3.5); Glucose 206 mg/dL (74-106); Osmolality,Calculated 342 (275-295); Potassium 4.0 mMol/L (3.4-5.1); Sodium 152 mMol/L (136-145); Total Protein 5.2 gm/dL (5.7-8.2); eGFR 32 See Note
[2025-05-02 08:36] LABS: Fibrinogen 153 mg/dL (175-375); INR 2.6 (0.9-1.3); Prothrombin Time 26.6 Seconds (9.0-12.2)
[2025-05-02] MEDS: DEXAMETHASONE SOD PHOS INJ 10 MG/ML VIAL 8 MG IVP ×2 (09:05→20:58)
[2025-05-02] MEDS: levETIRAcetam INJ 100 MG/ML VIAL 5ML 500 MG IVP ×2 (09:06→20:59)
--- NOTE | 2025-05-02 09:52 | ESPR_ITS ---
<Statement entered by Alok Mclaughlin MD - 05/02/25 15:41> Patient is seen and examined at bedside. Overnight, patient is noted to have a low hemoglobin, 4.8 and repeat H&H is 5.7 for which patient was given 2 units of PRBC transfusion. Repeat labs done this morning showed hemoglobin of 9.1 and platelets decreased to 21,000 but patient does not have any active bleeding manifestations at this point of time externally. Vitals are stable. Family, daughter who is the power of unit control clerk is reached out and she said no further transfusions. Labs done this morning showed improving kidney functions. Patient is currently on D5W in view of hyponatremia but sodium checks are not done regularly as patient is on hospice and the family does not want too many blood draws on the patient. Will continue Decadron and levetiracetam in view of brain metastasis for now. Patient is able to answer simple questions. Still pending home with hospice placement which will be likely done tomorrow. I have personally seen and examined the patient, agree with residents assessment and plan Patient plan of care was discussed with the attending physician, Dr. Isidoro Mclaughlin, PGY2 Documentation for date of: 05/02/25 Subjective Subjective Interval history: Overnight events: Patient noted to have a hemoglobin of 4.8 with repeat H&H 5.7 overnight, so patient was given 2 units of PRBC. Patient was seen and examined at bedside. AM vitals and labs reviewed. Patient does not appear to be in any acute distress at this time. Difficult to arouse the patient. Hemoglobin 9.1, platelets 21,000, creatinine 1.7, sodium 152. Lactic acid 2.9. Overall prognosis continues to be poor. Discussed platelet transfusion with the patient's family. As platelet transfusion is unlikely to significantly change the course of the patient's disease, family opted to forego platelet transfusion. Ordered 1 L of D5W for continued hypernatremia. Will stop ordering daily labs as the patient's family is pursuing home hospice. Pending placement for home hospice. Review of systems otherwise negative except for what is mentioned above. Exam Vital Signs Temp Pulse Resp BP Pulse Ox O2 Del Method O2 Flow Rate 96.8 F 74 14 143/54 H 97 Nasal Cannula 2 05/02/25 08:00 05/02/25 08:00 05/02/25 08:00 05/02/25 08:00 05/02/25 08:00 05/02/25 08:00 05/02/25 08:00 Narrative Exam General: Drowsy. Emaciated. HEENT: Normocephalic, noted hematoma on left forehead, mucous membranes moist. noted chemoport Heart: Regular rate and rhythm, no murmurs. Lungs: Clear to auscultation with no wheezing or crackles. Abdomen: Soft, nondistended, nontender, positive bowel sounds. ?No guarding or rebound tenderness. Neurologic: No gross neurological deficit, and patient able to move all 4 extremities. Extremities: No edema. Objective Labs 05/02/25 07:00 05/02/25 07:00 Labs: Laboratory Results - last 24 hr 05/01/25 05/01/25 05/01/25 04:10 16:40 20:30 WBC 16.3 H D RBC 1.45 L* Hgb 4.8 L* D Hct 14.9 L* MCV 103 H MCH 33.1 MCHC 32.2 RDW Std Deviation 58.0 H Plt Count 71 L D Neut % (Auto) 95 H Lymph % (Auto) 1 L [place] % (Auto) 3 Eos % (Auto) 0 Baso % (Auto) 0 Neut # (Auto) 15.5 H Lymph # (Auto) 0.2 L [place] # (Auto) 0.5 Eos # (Auto) 0.0 Baso # (Auto) 0.0 Immature Gran # (Auto) 0.15 H Absolute Nucleated RBC 0.10 H Immature Gran % 1 H Nucleated RBC % 1 H Smear Path Review Sent to Pathologist PT INR Fibrinogen Sodium 154 H Potassium 4.1 D Chloride 119 H Carbon Dioxide 19.7 L Anion Gap 15 BUN 124 H* Creatinine 1.8 H Estim Creat Clear Calc 18.2 L eGFR 30 L BUN/Creatinine Ratio 69 H Glucose 157 H D Calculated Osmolality 348 H Lactic Acid 4.7 H* 2.1 H Calcium 8.9 Corrected Calcium 9.5 Total Bilirubin 0.8 AST 43 H ALT 14 Alkaline Phosphatase 160 H Total Protein 5.6 L Albumin 3.2 L Globulin 2.4 Albumin/Globulin Ratio 1.3 Misc Test Result Platelets confirmed Blood Type O Positive Antibody Screen NEGATIVE Crossmatch See Detail Blood Bank Wristband ID Yes Blood Bank Comment PLATP Ready 05/01/25 05/02/25 21:38 07:00 WBC 18.4 H RBC 2.92 L Hgb 5.7 L* 9.1 L D Hct 17.4 L* 26.9 L MCV 92 MCH 31.2 MCHC 33.8 RDW Std Deviation 57.4 H Plt Count 21 L* D Neut % (Auto) 95 H Lymph % (Auto) 1 L [place] % (Auto) 3 Eos % (Auto) 0 Baso % (Auto) 0 Neut # (Auto) 17.6 H Lymph # (Auto) 0.1 L [place] # (Auto) 0.5 Eos # (Auto) 0.0 Baso # (Auto) 0.0 Immature Gran # (Auto) 0.20 H Absolute Nucleated RBC 0.19 H Immature Gran % 1 H Nucleated RBC % 1 H Smear Path Review PT 26.6 H D INR 2.6 H Fibrinogen 153 L Sodium 152 H Potassium 4.0 Chloride 117 H Carbon Dioxide 20.7 Anion Gap 14 BUN 111 H* Creatinine 1.7 H Estim Creat Clear Calc 19.3 L eGFR 32 L BUN/Creatinine Ratio 65 H Glucose 206 H Calculated Osmolality 342 H Lactic Acid 2.9 H Calcium 8.6 Corrected Calcium 9.6 Total Bilirubin 1.1 AST 51 H ALT 13 Alkaline Phosphatase 220 H D Total Protein 5.2 L Albumin 2.8 L Globulin 2.4 Albumin/Globulin Ratio 1.2 Misc Test Result Platelets confirmed Blood Type Antibody Screen Crossmatch Blood Bank Wristband ID Blood Bank Comment ABG Interpretation ABG results: 05/01/25 01:43 VBG pH 7.35 VBG pCO2 31 L VBG pO2 43 VBG Base Excess -8 L Quality Measures Quality Measures none (Fall with severe thrombocytopenia) Advance care planning discussed with:: patient, significant other and child Assessment & Plan Assessment Current Active Medications: Generic Name Dose Route Start Last Admin Trade Name Freq PRN Reason Stop Dose Admin Dexamethasone Sodium Phosphate 8 mg 05/01/25 09:00 05/02/25 09:05 Dexamethasone Sod Phos Inj 10 Mg/Ml Vial IVP 05/31/25 08:59 8 mg BID IZAIAH Administration Dextrose 1,000 mls @ 50 mls/hr 05/02/25 09:00 D5w IV 06/01/25 08:59 .Q20H IZAIAH Levetiracetam 500 mg 05/01/25 09:00 05/02/25 09:06 Levetiracetam Inj 100 Mg/Ml Vial 5ml IVP 05/31/25 08:59 500 mg Q12HR IZAIAH Administration Morphine Sulfate 1 mg 05/01/25 06:10 05/02/25 09:49 Morphine Sulf Inj 4 Mg/Ml Vial IVP 05/06/25 06:09 1 mg Q4HR PRN Administration PAIN SCALE 4-10(Mod-Sev Pantoprazole Sodium 40 mg 05/01/25 15:00 05/02/25 09:06 Pantoprazole Inj 40 Mg Vial IVP 05/31/25 14:59 40 mg QDAY IZAIAH Administration Plan Patient is a 70-year-old female with history of uterine, breast s/p radiation therapy brain cancer metastatic disease, hypertension present to [facility] on 04/30/2025 with chief complaint of s/p fall hematoma. Admitted for failure to thrive and thrombocytopenia. # Fall # Likely 2/2 mechanical in the setting of extreme weakness # 2/2 Hypernatremia # due to Severe dehydration - Family at the bedside reported that since 1 week patient is noted to have poor oral intake and noted to have severe weight loss of 17 pounds in 1 week - And patient is bedridden since last month due to extreme weakness - Patient is made to sit on the commode at the bedside and left her to grab something and by the time he came back he noticed that she is lying on the ground and noted to have trauma on her head for which she was brought to the ED. - Denies nausea, vomiting, seizure-like activity, fever - Head CT showed scalp hematoma, right frontal lobe metastasis, right cerebellar hemisphere metastasis. - Face CT did not show any acute fracture - Cervical spine CT did not show any fracture except for pathologic left supraclavicular lymphadenopathy - Vitals at the time of admission are significant for blood pressure 89/57 mmHg -Labs at the time of admission are significant for sodium 152 - In the ED, patient received 2 L of fluid and started on maintenance fluid Plan - Will continue D5W maintenance fluids - Fall precautions - Will continue to monitor vitals # Thrombocytopenia Likely secondary to bone marrow suppression-malignancy versus chemotherapy/radiation induced - Platelet count at the time of admission is less than 5 - Last chemotherapy session is on April 18 and radiation session is on February 15 - Also noted to have hemoglobin of 7.2 at the time of admission, baseline hemoglobin is around 10 on 12/2024 - Except scalp hematoma no other active bleeding manifestations noted Plan - 2 unit of platelet transfusion is done - Will continue to watch for bleeding manifestations - Eliquis is stopped which was started for the treatment of DVT - Will hold off on further platelet transfusions per wishes of patient's family # Hypernatremia # Hyperchloremia - Likely due to severe dehydration from poor oral intake - Patient was given 2 L of fluid boluses in the ED and was started on maintenance fluids Plan - Will continue to monitor sodium - Will add D5W if the sodium is not improving # FRANKY, improving # High anion gap metabolic acidosis # Lactic acidosis Baseline creatinine is 0.9 on 01/07/2025 - Likely due to severe dehydration from poor oral intake - At the time of admission, BUN is 132, creatinine is 1.9, bicarb 15.5, anion gap 22, lactate 7.8 Plan - Received fluid boluses and started on IV fluids # Coagulopathy - INR is 3.3 at the time of admission - Except scalp hematoma no other bleeding manifestations are noted - Patient is noted to have metastasis to the liver which could be causing altered liver function - Rest of the liver functions are within normal limits except for mildly elevated ALP, 175 Plan - Goals of care discussion done with the family and they want to proceed with the hospice and does not want any further invasive treatments, so FFP transfusion will be held for now # Leukocytosis - WBC at the time of admission is 21.3 - Patient is using dexamethasone 8 mg oral twice daily at home in view of cerebral mets - This could be the cause of elevated WBC Plan - Will not give any antibiotics for now as there is no active source of infection and family does not want any aggressive treatment to prolong the life of the patient - Resumed steroids # Anemia - Hemoglobin at the time of admission is 7.2, baseline hemoglobin is 10 on 12/2024 - Patient had history of multiple blood transfusions Plan - Will continue to monitor CBC - Will hold PRBC transfusion for now as the patient family does not want any invasive treatment on patient # Breast cancer # Uterine cancer # Metastasis to brain, lungs, extensive lymphadenopathy, left adrenal, liver - Patient is currently on radiation and chemotherapy - Noted to lose 17 pounds in the last 1 month and based on patient's clinical assessment, might not tolerate any more chemo or radiation therapy Plan - Family wants to proceed with hospice, daughter who is the power of unit control clerk agrees with the plan - Referral to hospice was done Hospital Maintenance: Dispo: Tele DVT ppx: SCD GI ppx: protonix Diet: NPO IV lines: Peripheral Code status: DNR Patient plan of care was discussed with the attending physician, Dr. Isidoro Ariza, PGY-1 Attending Provider Attestation/Addendum I have examined the patient, reviewed labs and imaging findings, discussed the case with the resident(s), and reviewed entered orders. I agree with the plan of care as outlined in this note, with these additional summaries/recommendations: Patient and patient's family seen at bedside. Patient has a known history of metastatic breast cancer to uterus and brain. Family reports patient had appointment with oncologist approximately 1 month ago when they were told about brain mets. Plan with oncologist was to perform palliative radiation to brain mets and continue Decadron. Since that appointment patient has had drastic functional decline in mobility and oral intake. She is now diagnosed with failure to thrive and had a ground-level fall. Imaging on admission now shows 3.5 cm pulmonary mass in the left lower lobe, metastatic pulmonary nodules, abnormal left axillary lymphadenopathy, hepatic metastasis, left adrenal metastatic tumor mass, abdominal lymphadenopathy, large rectal mass, and 28 mm osteolytic lesion greater trochanter left hip. Goals of care was held with patient's family and medical decision maker. All patient's medical conditions, treatment options, and prognosis were discussed at length. After reviewing all available data, family has decided to proceed with hospice care which is appropriate. We will respect family wishes. Discussed current treatment options with family and they are in agreement to give dextrose containing fluids since patient has had little to no oral intake. Given the risk of life- threatening bleed from thrombocytopenia they also would like to proceed with platelets. No FFP needed at this time. Hospice referral made. Okay to continue Decadron for brain mets. Continue Keppra. Pain management with morphine as needed. Family updated on the plan and in agreement. All questions answered to satisfaction. Please see residents note for additional details and management. Dr. Isidoro MD
[2025-05-02 10:27] LABS: Reflex Lactate? Y
[2025-05-02 10:51] LABS: Lactic Acid, 3 HR 3.7 mMol/L (0.4-2.0)
--- NOTE | 2025-05-02 12:13 | PC.SS ---
SS received call from Antonina (phone# [phone]), hotel services sales representative from [facility] who states they are able to accept pt tomorrow morning. SS spoke to dtr, Aimee Street who is aware. Aimee confirmed hospital bed, O2 and over bed table was delivered.
[2025-05-02] MEDS: HYDROmorphone INJ 2 MG/ML VIAL 0.25 MG IVP (13:07)
[2025-05-02] MEDS: DEXTROSE 5%-WATER 1,000 ML 50 ML IV (17:00)
[2025-05-03] VITALS: BP 144/62; PULSE 106; PULSE 109; RESP 18; TEMP 36.1; O2SAT 99
[2025-05-03 04:00] VITALS: BP 132/57; PULSE 67; PULSE 74; RESP 16; TEMP 36.2; O2SAT 99
[2025-05-03] MEDS: MORPHINE SULF INJ 4 MG/ML VIAL 1 MG IVP ×2 (05:48→13:02)
[2025-05-03 05:54] VITALS: BMI 17.6
[2025-05-03 07:38] VITALS: PULSE 70
[2025-05-03 08:00] VITALS: BP 138/55; PULSE 72; RESP 13; TEMP 36.1; O2SAT 99
--- NOTE | 2025-05-03 08:45 | PC.SS ---
SWEET DOUGH MIXER confirmed with patient's daughter that plan is to d/c the patient home with hospice services, [facility]. Patient will require ambulance transport on 3L oxygen. Daughter stated inability to cover ambulance transport. Patient does not possess coverage for ambulance transport. SWEET DOUGH MIXER to obtain CHE. Transport pending.
--- NOTE | 2025-05-03 10:02 | PC.SS ---
ROUNDING MACHINE TENDER contacted [facility] to confirm availability for staff to meet patient at home. [facility] stated staff can be present at 12:00 pm today. ROUNDING MACHINE TENDER to schedule transport for 12:00 pm. ROUNDING MACHINE TENDER confirmed all DME has been delivered to patient's residence.
--- NOTE | 2025-05-03 10:03 | PC.SS ---
Ambulance transport has been scheduled for 12:00 pm. Vendor is [facility]. BINDING CEMENTER FRENCH CORD notified bedside nurse, patient's family and [facility] staff.
--- NOTE | 2025-05-03 11:48 | PD.RESDS ---
Planned Discharge Date 05/03/25 DS: Providers Provider Date of admission: 05/01/25 05:17 Primary care physician: John Dempsey MD Admitting Provider: Lelia Angel MD Attending Provider on Admission: Harry Leiva DO Consults: 05/01/25 05:09 Referral Hospice Stat Comment: 05/01/25 10:00 Referral Registered Dietitian Routine Comment: Attending Provider on DC: Harry Leiva do Discharging Provider: Phani Ariza DO Anticipated date of discharge: 05/03/25 DS: Diagnosis Problem List Completed Was Problem List Reviewed/Reconciled?: Yes Hospital Course Hospital Course Hospital course: Reason for hospitalization: Failure to thrive and thrombocytopenia Summary: This patient is a 68-year-old female with past medical history of uterine cancer and breast cancer status post radiation therapy with mets throughout her body who presented to [facility] ED on 05/01 after a ground-level mechanical fall. The patient was admitted for management of failure to thrive and thrombocytopenia. For the past few months, the patient has been deteriorating clinically, requiring more assistance with movement, worsening oral intake, significant weight loss (almost 20 pounds over 1 month), and significantly decreased interactivity. The symptoms are likely due to worsening of her malignant breast and uterine cancer, to which she sees Dr. Daniel for radiation oncology and Dr. Monique for gynecologic oncology. In the ED, the patient was noted to have WBC of 21.3, hemoglobin 7 2, platelets less than 5000, and creatinine of 1.9 with lactic acidosis of 7.8. CT head in ED showed left frontal scalp hematoma and isodense lesions in the right frontal lobe and right cerebellum with surrounding edema, which are suggestive of metastases. Additionally, CT chest/abdomen/pelvis showed extensive metastases to multiple organs including liver and left adrenal gland. Due to her FRANKY and thrombocytopenia, the patient received IV fluids and plasmapheresis in the ED. Initially, the family at bedside was only considering hospice and not full comfort measures, but after seeing what had transpired, the patient's family asked for a proper goals of care discussion with the medicine team regarding the patient. The goals of care discussion was held on 05/01, which included the patient's sudden, the patient's daughter who is also the power of workers compensation attorney, and the patient's . The family members were told about the overall poor prognosis of the patient as there is little that the medicine team can do to resolve her underlying significant metastatic malignancy. The family members were also told that if they wished, the medicine team will do what we medically could to stabilize the patient, but it is unlikely that the patient will make a full recovery. The patient's family ultimately decided to pursue hospice but still wanted some more time to decide on pursuing comfort care or not. Hospice referral was then done on 05/01 as a result. On 05/01 in the evening, it was noted that the patient had a significantly low hemoglobin of 4.8, so the patient had transfusion of 2 pRBCs. The day team had further discussion with the patient's family, who ultimately decided to pursue comfort care in light of the patient's continued deterioration. On 05/03, home hospice set up was completed, and so the patient was discharged back to home hospice on comfort care with plans to continue Keppra and dexamethasone to prevent passing away from a seizure. All other medications were stopped. Discharge Recommendations: - Follow up with PCP within 1 week of discharge - Return to the ED or call EMS if symptoms return and/or worsen - Please continue to take dexamethasone 8mg tablet by mouth twice a day to prevent increased pressures in brain - Continue to take Keppra 500mg tablet by mouth twice a day to prevent seizure episodes - Continie to take oxycodone-acetaminophen 5-325mg by mouth every eight hours as needed - Stop all other home medications If you don't have a PCP, you can make an appointment at the [facility]: [address] [place] [address] Hospital Diagnoses: #Goals of care #Failure to thrive #Thrombocytopenia #Severe dehydration #Mechanical fall #Hypernatremia #Hyperchloremia #FRANKY, improving #High anion gap metabolic acidosis #Lactic acidosis #Coagulopathy #Leukocytosis #Anemia #History of breast and uterine cancer #Metastases to brain, lungs, extensive lymphadenopathy, left adrenal, liver Patient plan of care was discussed with attending physician Dr. Abbie Ariza, PGY-1 Status at Discharge Functional status at discharge: bed bound Overall status at discharge: patient is not back to baseline Time Spent with Patient Time attestation: Total time spent providing and/or coordinating discharge services: Time spent: Greater than 30 minutes Exam Vital Signs Temp Pulse Resp BP Pulse Ox O2 Del Method O2 Flow Rate 96.9 F 72 13 138/55 H 99 Nasal Cannula 2 05/03/25 08:00 05/03/25 08:00 05/03/25 08:00 05/03/25 08:00 05/03/25 08:00 05/03/25 08:00 05/03/25 08:00 Narrative Exam General: Drowsy. Emaciated. HEENT: Normocephalic, noted hematoma on left forehead, mucous membranes moist. noted chemoport Heart: Regular rate and rhythm, no murmurs. Lungs: Clear to auscultation with no wheezing or crackles. Abdomen: Soft, nondistended, nontender, positive bowel sounds. ?No guarding or rebound tenderness. Neurologic: No gross neurological deficit, and patient able to move all 4 extremities. Extremities: No edema. Discharge Plan Plan Patient Disposition: Home w/HOSPICE Patient condition on transfer: Stable Care Plan Goals: Please continue to take dexamethasone 8mg tablet by mouth twice a day to prevent increased pressures in brain Continue to take Keppra 500mg tablet by mouth twice a day to prevent seizure episodes Continie to take oxycodone-acetaminophen 5-325mg by mouth every eight hours as needed Stop all other home medications Please follow-up with your PCP within 1 week of discharge or follow-up at the [facility] [address] [place] [address] If your symptoms worsen or if you develop new chest pain, shortness of breath, severe headache or bleeding - please come back to the ED immediately. Prescriptions/Referrals Prescriptions/Med Rec: New dexamethasone 4 mg tablet 8 mg PO BID 30 Days Qty: 120 0RF levetiracetam [Keppra] 500 mg tablet 500 mg PO BID 30 Days Qty: 60 0RF Continued oxycodone-acetaminophen 5-325 mg tablet 1 tab PO Q8H MDD 15MG PRN (Reason: pain) Qty: 21 0RF Discontinued amlodipine 5 mg tablet 10 mg PO QDAY hydrochlorothiazide 25 mg tablet 25 mg PO QDAY potassium chloride 20 mEq/15 mL liquid 20 meq PO QDAY Qty: 5 0RF polyethylene glycol 3350 [Miralax] 17 gram/dose powder 17 g PO BID 14 Days Qty: 119 2RF Rx Instructions: And then once a day for 1 week and then talk to your primary care to see if you need to continue this medication. Referrals: John Dempsey MD [Primary Care Provider] Patient/Caregiver Discharge Instructions Education Materials: Resources for People with Cancer Print Language: Yoruba Stand Alone Forms: [employer]avi Award Info., Patient Portal Info Letter Discharge Order Discharge Orders: Discharge (Routine); Ordered 05/03/25 Ordered By: Alok Mclaughlin Quality Discharge Quality Measures comfort care/end of life MD Attestestation MD Attestation I have discussed and was present for the essential components of the discharge history, physical examination, diagnosis, and discharge treatment plan with the resident. I agree with the patient's discharge care as documented by the resident and amended herein by me. Alok Leiva DO. The patient understood all discharge instructions, all questions were answered satisfactorily. The patient was instructed to return to the Emergency Department is symptoms worsened or persisted. Although this document has been carefully reviewed, there may still be some phonetic and other typographical errors. These errors are purely grammatical due to imperfections in the software program and should not be construed in any way to compromise the substance of the patient's medical care during this visit.
[2025-05-03 12:00] VITALS: BP 143/56; PULSE 78; RESP 15; TEMP 36.1; O2SAT 97
--- NOTE | 2025-05-03 12:28 | PC.SS ---
Transport has been moved back to 1:00 pm. PARA EDUCATOR notified patient's family, bedside nurse and [facility] hospice staff.
== END 2025-05-03 13:51 | disposition hospice, home (50) | DRG 641 ==
LOC: SERX 05-01 04:25 → SERHOLD 05-01 05:20 → S2NX 05-02 06:26 → S2SX 05-02 06:26
PROVIDERS: Admitting Provider Student in an Organized Health Care Education/Training Program; Emergency Provider Emergency Medicine; PCP Internal Medicine; Visit Provider Student in an Organized Health Care Education/Training Program
DX: R62.7 Adult failure to thrive (principal); N17.9 Acute kidney failure, unspecified; Z68.1 Body mass index [BMI] 19.9 or less, adult; C78.00 Secondary malignant neoplasm of unspecified lung; C79.31 Secondary malignant neoplasm of brain; E87.1 Hypo-osmolality and hyponatremia; E87.20 Acidosis, unspecified; C79.72 Secondary malignant neoplasm of left adrenal gland; C78.7 Secondary malignant neoplasm of liver and intrahepatic bile duct; R64 Cachexia; D69.6 Thrombocytopenia, unspecified; C50.919 Malignant neoplasm of unspecified site of unspecified female breast; C55 Malignant neoplasm of uterus, part unspecified; Z51.5 Encounter for palliative care; Z66 Do not resuscitate; D64.9 Anemia, unspecified; S00.03XA Contusion of scalp, initial encounter; W18.30XA Fall on same level, unspecified, initial encounter; Z74.01 Bed confinement status; Z92.3 Personal history of irradiation
CPT/HCPCS: 36415; 36430; 36600; 70450; 70486; 71045; 71250; 72125; 74176; 80053; 81001; 82010; 82140; 82150; 82248; 82550; 82803; 83605; 83735; 83880; 84145; 84443; 84484; 85014; 85018; 85025; 85384; 85610; 85652; 85730; 86140; 86850; 86900; 86901; 86923; 86965; 87040; 87077; 87186; 87400; 87811; 90715; 93005; 96361; 96365; 96375; 96376; 99285; J0689; J1100; J1171; J1953; J2270; J2405; J2470; J7030; J7070; P9016; P9035; A9270